=== PATIENT | male | born 1985 | race Caucasian/White ===

== ENCOUNTER 2023-12-01 12:15 | Inpatient (IN) | payer OTHER, MEDICAID, SELFPAY ==
[2023-12-01] VITALS (136 sets, daily range): BP systolic 98–174; BP diastolic 46–94; PULSE 60–106; RESP 10–35; TEMP 25–36.8; O2SAT 81–100; BMI 81.3
--- NOTE | 2023-12-01 12:27 | DI.RAD.S_ITS ---
PROCEDURE: XR CHEST 1V INDICATIONS: Shortness of breath TECHNIQUE: One view of the chest was acquired. COMPARISON: [facility], CR, XR CHEST 1 VIEW, 03/07/2023, 15:05. [facility], CR, XR CHEST 1 VIEW, 11/21/2023, 8:25. FINDINGS: Surgical changes and devices: None. Lungs and pleura: Mild perihilar interstitial prominence. No focal consolidation No pleural effusions or pneumothorax. Mediastinum: Mediastinal contours appear normal. Heart size is normal. Bones and chest wall: No suspicious bony lesions. Overlying soft tissues appear unremarkable. IMPRESSION: Mild perihilar interstitial prominence suggesting mild pulmonary congestion. Dictated by: Ryan Paz M.D. on 12/01/2023 at 13:11 Approved by: Ryan Paz M.D. on 12/01/2023 at 13:13
--- NOTE | 2023-12-01 13:12 | ED_ITS ---
HPI - General Adult General Chief complaint: Shortness of Breath/Dyspnea Stated complaint: low oxygen, coughing up foamy red Time Seen by Provider: 12/01/23 13:11 Mode of arrival: Wheelchair History of Present Illness HPI narrative: 38-year-old gentleman with a history of super morbid obesity, BMI of 81.4, oxygen-dependent with a history of methadone dependence, prior pulmonary embolism on warfarin, congestive heart failure and restrictive lung disease on 40 mg of Lasix b.i.d. recently moved to the area and having difficulty with housing instability, finding a primary care provider, continuing medications and presents today complaining of increasing dyspnea. He notes that he has had slight increase in cough, runny nose feels that he likely had a viral infection starting a couple of days ago. He ?thinks? that he has been taking his Lasix and his warfarin but can not completely confirm this. He was seen at [facility] Emergency Department on November 20 with similar complaints medications were filled at that time. The patient had since had 2 moves. Currently says that he his mother to other adults and 2 cats are living in a very small hotel room for the next week and do not have housing options beyond that. He typically isn't on 2 L of oxygen at home and does have his oxygen available. On that 2 L he is usually in the 90-91% range. Over the last couple of days his oxygen saturations have consistently been in the low 80s and on arrival in the emergency department was at 81% on 1.5 L. significant exertional dyspnea, difficulty even rolling over which is compounded by his BMI of 81. He sits it is lower extremities are swollen but not dramatically more so. There was no vesicles or weeping. He does have decubitus breakdown over both posterior thighs that has been difficult to care for but he feels that that is currently at its baseline as well. He has not complaining palpitations or chest pain. He does have a mild headache mild nasal congestion Related Data Allergies Allergy/AdvReac Type Severity Reaction Status Date / Time No Known Drug Allergies Allergy Verified 12/01/23 12:27 Review of Systems Review of Systems Narrative: Pertinent positive and negative findings as per HPI Patient History Medical History Decubitus ulcers Chronic respiratory failure with hypoxia and hypercapnia Pulmonary embolism Congestive heart failure Morbid obesity Social History household members: family and friend(s) Smoking Status: Former smoker Smoking Status: Former smoker Substance Use Type: marijuana Exam Initial Vital Signs Initial Vital Signs: Vital Signs Temperature 96.7 F L 12/01/23 12:23 Pulse Rate 106 H 12/01/23 12:23 Respiratory Rate 24 12/01/23 12:23 Blood Pressure 134/68 12/01/23 12:23 Pulse Oximetry 81 L 12/01/23 12:23 Oxygen Delivery Method Nasal Cannula 12/01/23 12:23 Oxygen Flow Rate 1.5 12/01/23 12:23 General: Chronically ill-appearing, morbidly obese, currently on 6 L humidified nasal cannula oxygen able to speak in full sentences HEENT: Moist mucous membranes, normal sclera with reactive pupils, Respiratory: Lung Cardiac: Regular rate and rhythm no murmurs no bruits Abdomen: Soft, nontender, good bowel tones, no flank pain Skin: Warm and dry, no rashes Neurologic: Grossly neurologically intact with no obvious asymmetries or abnormalities Extremities: No trauma, well perfused Psych: Cooperative, appropriate insight and affect Course Orders Ordered: ED Orders 12/01/23 12:27 Consult to FIRE WATCHER - Philosophy Lecturer Stat XR chest 1V Stat EKG-12 Lead Stat Measure peak expiratory flow ONCE RT Consult Eval and Treat NOW 12/01/23 13:20 Complete Blood Count AUTO DIFF Stat Comprehensive Metabolic Panel Stat Lactate (Lactic Acid) Stat NT-proBNP (BNP-Adult 18+) Stat Prothrombin Time INR Stat Troponin I Stat 12/01/23 14:32 BiPAP Ventilatory Support RT PROTOCOL 12/01/23 14:49 ABG [Arterial Blood Gas] Stat 12/01/23 15:33 Respiratory Panel (Film Array) Stat Discontinued Medications Albuterol (Albuterol 2.5 Mg/3 Ml Neb (Adult)) 5 mg INH NOW ONE Stop: 12/01/23 13:22 Last Admin: 12/01/23 13:26 Dose: 5 mg Documented By: JIMMY Furosemide 80 mg/ Sodium (Chloride) 58 mls @ 116 mls/hr IV NOW ONE Stop: 12/01/23 14:02 Last Infusion: 12/01/23 15:07 Dose: Infused Documented By: Admin: 12/01/23 14:29 Dose: 116 mls/hr Documented By: PRIYA Vital Signs Vital signs: Vital Signs - 8 hr 12/01/23 12:23 12/01/23 13:15 12/01/23 13:20 Temperature 96.7 F L Pulse Rate 106 H 100 H 91 H Respiratory Rate 24 19 20 Blood Pressure 134/68 Pulse Oximetry 81 L 90 L 93 Oxygen Delivery Method Nasal Cannula Nasal Cannula Nasal Cannula Oxygen Flow Rate 1.5 2 6 Fraction of Inspired Oxygen 12/01/23 13:25 12/01/23 13:26 12/01/23 13:29 Temperature Pulse Rate 91 H 87 Respiratory Rate 17 10 L Blood Pressure 137/79 Pulse Oximetry 94 94 Oxygen Delivery Method Nasal Cannula Nasal Cannula Oxygen Flow Rate 6 6 Fraction of Inspired Oxygen 44 12/01/23 13:29 12/01/23 13:30 12/01/23 13:30 Temperature Pulse Rate 87 85 Respiratory Rate 15 18 Blood Pressure 147/83 H Pulse Oximetry 99 99 Oxygen Delivery Method Nasal Cannula Nasal Cannula Oxygen Flow Rate 6 6 Fraction of Inspired Oxygen 12/01/23 13:35 12/01/23 13:40 12/01/23 13:40 Temperature Pulse Rate 85 87 Respiratory Rate 15 18 Blood Pressure 154/81 H Pulse Oximetry 97 92 Oxygen Delivery Method Nasal Cannula Oximask Oxygen Flow Rate 6 8 Fraction of Inspired Oxygen 12/01/23 13:45 12/01/23 13:50 12/01/23 13:50 Temperature Pulse Rate 87 98 H Respiratory Rate 16 23 Blood Pressure 174/76 H Pulse Oximetry 94 93 Oxygen Delivery Method Oximask Oximask Oxygen Flow Rate 8 8 Fraction of Inspired Oxygen 12/01/23 13:55 12/01/23 14:00 12/01/23 14:00 Temperature Pulse Rate 84 89 Respiratory Rate 20 35 H Blood Pressure 163/78 H Pulse Oximetry 95 90 L Oxygen Delivery Method Oxygen Flow Rate Fraction of Inspired Oxygen 12/01/23 14:05 12/01/23 14:10 12/01/23 14:10 Temperature Pulse Rate 92 H 95 H Respiratory Rate 33 H 24 Blood Pressure 153/73 H Pulse Oximetry 89 L 86 L Oxygen Delivery Method Oxygen Flow Rate Fraction of Inspired Oxygen 12/01/23 14:15 12/01/23 14:16 12/01/23 14:20 Temperature Pulse Rate 87 71 Respiratory Rate 21 30 H Blood Pressure Pulse Oximetry 95 81 L 94 Oxygen Delivery Method Humidification Oximask Oxygen Flow Rate 8 Fraction of Inspired Oxygen 12/01/23 14:20 12/01/23 14:25 12/01/23 14:30 Temperature Pulse Rate 71 73 Respiratory Rate 30 H 23 Blood Pressure 137/64 Pulse Oximetry 95 96 Oxygen Delivery Method Oxygen Flow Rate Fraction of Inspired Oxygen 12/01/23 14:31 12/01/23 14:31 12/01/23 14:35 Temperature Pulse Rate 77 83 Respiratory Rate 18 27 H Blood Pressure 147/86 H Pulse Oximetry 90 L 91 Oxygen Delivery Method Oximask Oxygen Flow Rate 8 Fraction of Inspired Oxygen 12/01/23 14:40 12/01/23 14:40 12/01/23 14:40 Temperature Pulse Rate 67 Respiratory Rate 27 H Blood Pressure 133/79 Pulse Oximetry 98 Oxygen Delivery Method BiPAP Oxygen Flow Rate Fraction of Inspired Oxygen 50 12/01/23 14:45 12/01/23 14:50 12/01/23 14:51 Temperature Pulse Rate 66 67 68 Respiratory Rate 24 26 H 28 H Blood Pressure Pulse Oximetry 99 99 98 Oxygen Delivery Method Oxygen Flow Rate Fraction of Inspired Oxygen 12/01/23 14:51 12/01/23 14:55 12/01/23 14:56 Temperature Pulse Rate 70 Respiratory Rate 29 H Blood Pressure 152/94 H Pulse Oximetry 100 Oxygen Delivery Method Oxygen Flow Rate Fraction of Inspired Oxygen 30 12/01/23 15:00 12/01/23 15:05 12/01/23 15:10 Temperature Pulse Rate 90 69 67 Respiratory Rate 24 20 17 Blood Pressure Pulse Oximetry 96 94 92 Oxygen Delivery Method Oxygen Flow Rate Fraction of Inspired Oxygen 12/01/23 15:11 12/01/23 15:11 12/01/23 15:15 Temperature Pulse Rate 67 68 Respiratory Rate 14 22 Blood Pressure 168/77 H Pulse Oximetry 93 92 Oxygen Delivery Method Oxygen Flow Rate Fraction of Inspired Oxygen 12/01/23 15:20 12/01/23 15:21 12/01/23 15:21 Temperature Pulse Rate 68 70 Respiratory Rate 19 25 H Blood Pressure 153/86 H Pulse Oximetry 93 92 Oxygen Delivery Method Oxygen Flow Rate Fraction of Inspired Oxygen 12/01/23 15:25 12/01/23 15:30 12/01/23 15:31 Temperature Pulse Rate 67 68 69 Respiratory Rate 15 25 H 19 Blood Pressure Pulse Oximetry 93 92 91 Oxygen Delivery Method Oxygen Flow Rate Fraction of Inspired Oxygen 12/01/23 15:31 12/01/23 15:35 12/01/23 15:37 Temperature Pulse Rate 70 71 Respiratory Rate 18 21 Blood Pressure 98/46 L Pulse Oximetry 90 L 90 L Oxygen Delivery Method Oxygen Flow Rate Fraction of Inspired Oxygen 12/01/23 15:37 12/01/23 15:40 12/01/23 15:45 Temperature Pulse Rate 71 73 Respiratory Rate 20 15 Blood Pressure 116/61 Pulse Oximetry 90 L 95 Oxygen Delivery Method Oxygen Flow Rate Fraction of Inspired Oxygen 12/01/23 15:46 12/01/23 15:50 12/01/23 15:55 Temperature Pulse Rate 74 74 Respiratory Rate 19 22 Blood Pressure 116/61 Pulse Oximetry 96 93 Oxygen Delivery Method Oxygen Flow Rate Fraction of Inspired Oxygen 30 12/01/23 16:00 12/01/23 16:05 12/01/23 16:10 Temperature Pulse Rate 79 81 82 Respiratory Rate 19 20 14 Blood Pressure Pulse Oximetry 94 92 Oxygen Delivery Method Oxygen Flow Rate Fraction of Inspired Oxygen 12/01/23 16:15 12/01/23 16:20 12/01/23 16:25 Temperature Pulse Rate 77 70 71 Respiratory Rate 24 21 12 Blood Pressure Pulse Oximetry 90 L 96 95 Oxygen Delivery Method Oxygen Flow Rate Fraction of Inspired Oxygen 12/01/23 16:30 12/01/23 16:35 Temperature Pulse Rate 77 69 Respiratory Rate 20 17 Blood Pressure Pulse Oximetry 96 93 Oxygen Delivery Method Oxygen Flow Rate Fraction of Inspired Oxygen Medical Decision Making Lab Data 12/01/23 13:20 12/01/23 13:20 Labs: Lab Results 12/01/23 12/01/23 12/01/23 Range/Units 13:20 14:49 15:33 WBC 7.4 (4.5-11.0) X10^3/uL RBC 4.59 (4.5-5.9) X10^6/uL Hgb 10.9 L (13.5-17.5) g/dL Hct 35.2 L (41-53) % MCV 76.7 L (80-100) fL MCH 23.8 L (26-34) PG MCHC 31.1 (30-36) % RDW 17.6 H (11.6-14.8) % Plt Count 316 (150-400) X10^3/uL Neut % (Auto) 80.3 H (50-75) % Lymph % (Auto) 9.6 L (25-40) % [place] % (Auto) 8.3 (3-14) % Eos % (Auto) 0.9 L (2-4) % Baso % (Auto) 0.9 (0-2) % Neut # (Auto) 5900 (9707-1516) /uL Lymph # (Auto) 700 L (3220-9138) /uL [place] # (Auto) 600 (0-900) /uL Eos # (Auto) 100 (0-450) /uL Baso # (Auto) 100 (0-100) /uL PT 21.8 H (9.4-12.5) SECONDS INR 1.9 H (0.9-1.3) ABG Sample Site Right radial ABG pH 7.32 L (7.35-7.45) ABG pCO2 78.4 H* (35-45) mmHg ABG pO2 102 H (80-100) mmHg ABG HCO3 41 H (23-27) mmol/L ABG Total CO2 43 H (23-27) mmol/L ABG O2 Saturation 97 (95-100) % ABG Base Excess 15.0 H (-2-3) mmol/L FiO2 50 Sodium 139 (137-145) mmol/L Potassium 3.8 (3.4-5.1) mmol/L Chloride 98 (98-107) mmol/L Carbon Dioxide 37 H (22-32) mmol/L BUN 8 L (9-20) mg/dL Creatinine 0.67 (0.66-1.25) mg/dL Estimated GFR > 60 (>60) mL/min BUN/Creatinine Ratio 11.9 (6-22) Glucose 137 H (70-100) mg/dL Lactate 1.6 (0.7-2.1) mmol/L Calcium 8.0 L (8.4-10.2) mg/dL Total Bilirubin 0.5 (0.2-1.3) mg/dL AST 17 (17-59) IU/L ALT 10 (<50) IU/L Alkaline Phosphatase 71 (38-126) U/L Troponin I < 0.012 (0.01-0.034) ng/mL NT-Pro-B Natriuret Pep 2850 H (<125) pg/mL Total Protein 7.5 (6.3-8.2) g/dL Albumin 3.7 (3.5-5.0) g/dL Globulin 3.8 (1.7-4.1) g/dL Albumin/Globulin Ratio 1.0 (1.0-2.8) Chlamy pneumoniae PCR Not detected (Not Detect) Adenovirus (PCR) Not detected (Not Detect) B.parapertussis DNA PCR Not detected (Not Detecte) Coronavirus OC43 (PCR) Not detected (Not Detect) Coronavirus HKU1 (PCR) Not detected (Not Detect) Coronavirus 229E (PCR) Not detected (Not Detect) SARS-CoV-2 (PCR) Not detected (Not Detecte) Coronavirus NL63 (PCR) Not detected (Not Detect) Human Metapneumovir PCR Not detected (Not Detect) Influenza Type A (PCR) Not detected (Not Detect) Influenza Type B (PCR) Not detected (Not Detect) M. pneumoniae (PCR) Not detected (Not Detect) Parainfluenza 1 (PCR) Not detected (Not Detect) Parainfluenza 2 (PCR) Not detected (Not Detect) Parainfluenza 3 (PCR) Not detected (Not Detect) Parainfluenza 4 (PCR) Not detected (Not Detect) RSV (PCR) Not detected (Not Detect) Entero/Rhino (PCR) Detected H (Not Detect) Urine Dip Bedside Urine Glucose Negative Bedside Urine Bilirubin - Negative Bedside Urine Ketone - Negative Urine Specific Violet 1.010 Bedside Urine Occult Blood - Negative Bedside Urine pH 6.5 Bedside Urine Protein - Negative Bedside Urine Urobilinogen - Negative Bedside Urine Nitrite - Negative Bedside Urine Leukocytes - Negative Esterase Point of care testing: Urine Dip Bedside Urine Glucose Negative Bedside Urine Bilirubin - Negative Bedside Urine Ketone - Negative Urine Specific Violet 1.010 Bedside Urine Occult Blood - Negative Bedside Urine pH 6.5 Bedside Urine Protein - Negative Bedside Urine Urobilinogen - Negative Bedside Urine Nitrite - Negative Bedside Urine Leukocytes - Negative Esterase MDM Narrative Medical decision making narrative: CC: Increasing dyspnea Complicating co-morbidities: Morbid obesity, restrictive lung disease secondary to morbid obesity, congestive heart failure, home oxygen dependent, housing instability, inconsistent use of medications because of housing instability, decubitus ulcers posterior thighs bilaterally Data collected from: patient, mother Medical records reviewed: ER note from [facility] from November 20 reviewed Differential considered: Viral syndrome, acute exacerbation of congestive heart failure, progressive restrictive lung disease with respiratory distress, pneumonia, acute coronary syndrome Exam documented above, pertinent findings include: Patient's saturations were in the low 80s on 1.5 L at home. In the low 90s on 6 L in the emergency department. Morbidly obese, exam is challenging due to this. I do not appreciate significant wheezing or crackles. He has chronic venous stasis changes and chronic [place] edema in the lower extremities without bulla or weeping. No evidence of lower extremity cellulitis. He does have skin break down behind both thighs without obvious infection. Lab Test results independently reviewed as above. Pertinent findings: CBC does not suggest infection, chronic stable anemia, platelets are appropriate ABG is notable for a pH of 7.32, CO2 of 78.4, O2 of 102 and this is with an FiO2 of 50 Chemistries are unremarkable. With creatinine appropriate. ProBNP is minimally elevated at 2850 troponin is nondetectable Respiratory panel does return positive for entero/rhino virus Independently reviewed EKG: EKG shows sinus rhythm at a rate of 83. No acute ischemic changes Imaging studies independently reviewed: Chest x-ray is consistent with mild pulmonary congestion no acute infiltrates Treatments: 80 mg of Lasix, nasal cannula oxygen. Re-evaluations: Patient is deteriorating and becoming increasingly confused. ABG is ordered showing his CO2 increasing to 78.4. I suspect this is in part to the higher oxygen levels. Requested that oxygen levels be maintained in the 90- 92% range certainly not higher and BiPAP be started while he is still alert and appropriate enough to participate with BiPAP. He would be a very poor candidate for intubation both in terms of getting him intubated and getting him extubated with his morbid obesity. Discussion: 38-year-old gentleman with morbid obesity, restrictive lung disease congestive heart failure housing instability not taking medications as prescribed due to the housing instability worsening congestive heart failure and increasing CO2. He is currently on BiPAP and seems to be doing relatively well. Clearly is oxygen dependent for respiratory drive and sats need to remain in the low 90s. He has been given 80 mg of IV Lasix. He will need a bariatric bed and attention to the pressure ulcers on the back of his thighs. These are not infected currently and he does not need current antibiotics. There was no evidence of acute coronary syndrome. Care will be discussed with the hospitalist Critical Care Time Critical Care Time Critical Care Time: Yes Total Critical Care Time: 33 Attestation: Critical care time is separate from other billable procedures. There is a high probability of a significant, sudden or life-threatening deterioration that requires my full and direct attention, intervention and personal management. This critical care time includes consultation with family and other consulting doctors, review of records, and interpretation of data from labs, EKGs and imaging as well as managements of progressive respiratory failure with initiation of BiPAP Discharge Plan Departure Patient Disposition: Admitted As Inpatient Clinical Impression: Morbid obesity with BMI of 70 and over, adult, Enterovirus infection Congestive heart failure Qualifiers: Heart failure type: unspecified Heart failure chronicity: acute on chronic Q ualified Code(s): I50.9 - Heart failure, unspecified Pulmonary embolism Qualifiers: Pulmonary embolism type: other Chronicity: chronic Acute cor pulmonale presence: unspecified Qualified Code(s): I27.82 - Chronic pulmonary embolism Respiratory failure with hypoxia and hypercapnia Qualifiers: Chronicity: acute on chronic Qualified Code(s): J96.21 - Acute and chronic respiratory failure with hypoxia Decubitus skin ulcer Qualifiers: Pressure injury location: thigh Pressure injury stage: stage 2 Laterality: u nspecified laterality Qualified Code(s): L89.202 - Pressure ulcer of unspecified hip, stage 2 Admit Date/Time: 12/01/23 16:35 Admit Provider: Elvis Viera
[2023-12-01] MEDS: ALBUTEROL 2.5 MG/3 ML NEB (ADULT) 5 MG INH (13:26)
[2023-12-01 13:35] LABS: Add Manual Diff / Slide Review NO; Basophils Absolute Auto 100 /uL (0-100); Basophils Percent Auto 0.9 % (0-2); Eosinophils Absolute Auto 100 /uL (0-450); Eosinophils Percent Auto 0.9 % (2-4); Hematocrit 35.2 % (41-53); Hemoglobin 10.9 g/dL (13.5-17.5); Lymphocytes Absolute Auto 700 /uL (1100-4500); Lymphocytes Percent Auto 9.6 % (25-40); Mean Corpuscular HGB Conc 31.1 % (30-36); Mean Corpuscular Hemoglobin 23.8 PG (26-34); Mean Corpuscular Volume 76.7 fL (80-100); Monocytes Absolute Auto 600 /uL (0-900); Monocytes Percent Auto 8.3 % (3-14); Neutrophils Absolute Auto 5900 /uL (1500-7000); Neutrophils Percent Auto 80.3 % (50-75); Platelet Count 316 X10^3/uL (150-400); Red Blood Cell Count 4.59 X10^6/uL (4.5-5.9); Red Cell Distribution Width 17.6 % (11.6-14.8); White Blood Cell Count 7.4 X10^3/uL (4.5-11.0)
[2023-12-01 13:44] LABS: INR 1.9 (0.9-1.3); Prothrombin Time 21.8 SECONDS (9.4-12.5)
[2023-12-01 13:48] LABS: Alanine Aminotransferase 10 IU/L (<50); Albumin 3.7 g/dL (3.5-5.0); Alkaline Phosphatase 71 U/L (38-126); Aspartate Aminotransferase 17 IU/L (17-59); BUN Creatinine Ratio 11.9 (6-22); Bilirubin Total 0.5 mg/dL (0.2-1.3); Blood Urea Nitrogen 8 mg/dL (9-20); Chloride 98 mmol/L (98-107); Estimated Glomerular Filt Rate > 60 mL/min (>60); Globulin 3.8 g/dL (1.7-4.1); Glucose 137 mg/dL (70-100); HEMOLYSIS < 15 (0-50); Lactate (Lactic Acid) 1.6 mmol/L (0.7-2.1); Potassium 3.8 mmol/L (3.4-5.1); Sodium 139 mmol/L (137-145); Total Protein 7.5 g/dL (6.3-8.2)
[2023-12-01 13:55] LABS: Carbon Dioxide 37 mmol/L (22-32)
[2023-12-01 13:58] LABS: NT-proBNP (BNP-Adult 18+) 2850 pg/mL (<125)
[2023-12-01 14:00] LABS: Troponin I < 0.012 ng/mL (0.01-0.034)
--- NOTE | 2023-12-01 14:12 | PC.NURSE ---
RT called to re evaluated patient. Sats dropping into 70's. Patient sleeping and mouth breathing. Upon waking patient sats come up to mid 80's when encouraged to take deep breaths
[2023-12-01] MEDS: FUROSEMIDE 80 MG in SODIUM CHLORIDE 0.9% 50 ML 116 MG IV (14:29)
--- NOTE | 2023-12-01 14:40 | PC.NURSE ---
1430 Came to bedside of patient due to low O2 saturation of 83% with good waveform. Patient is responsive to pain with a GCS of 9, not speaking. He is on 8L o2 via oximask with wet lung sounds. O spoke with Dr. freire and Will RY, verbal order given for patient to be put on BIPAP and to get an ABG/VBG.
[2023-12-01 15:11] LABS: PCO2 ABG 78.4 mmHg (35-45); pH ABG 7.32 (7.35-7.45)
[2023-12-01 15:12] LABS: Allen Test for ABG Passed? Yes, Passed; Blood Gas Collection Site Right Radial; Fractionated Inspired Oxygen 50; HCO3 ABG 41 mmol/L (23-27); Oxygen Saturation ABG 97 % (95-100); PO2 ABG 102 mmHg (80-100); TCO2 ABG 43 mmol/L (23-27)
[2023-12-01 16:33] LABS: Adenovirus Not Detected (Not Detect); B. parapertussis Not Detected (Not Detecte); Bordetella pertussis Not Detected (Not Detect); Chlamydophila pneumoniae Not Detected (Not Detect); Coronavirus 229E Not Detected (Not Detect); Coronavirus HKU1 Not Detected (Not Detect); Coronavirus NL 63 Not Detected (Not Detect); Coronavirus OC43 Not Detected (Not Detect); Human Metapneumovirus Not Detected (Not Detect); Human Rhinovirus/Enterovirus Detected (Not Detect); Influenza A Not Detected (Not Detect); Influenza B Not Detected (Not Detect); Mycoplasma pneumoniae Not Detected (Not Detect); Parainfluenza Virus 1 Not Detected (Not Detect); Parainfluenza Virus 2 Not Detected (Not Detect); Parainfluenza Virus 3 Not Detected (Not Detect); Parainfluenza Virus 4 Not Detected (Not Detect); Respiratory Syncytial Virus Not Detected (Not Detect); SARS- CoV-2 Not Detected (Not Detecte)
--- NOTE | 2023-12-01 17:20 | CM.IDA ---
Initial DCP Assessment Note Patient is 38 y/o male who presents to ED via POV with mother due to concern for SOB, low O2 and difficulty accessing rx. Patient has home O2 on 1.5 L. Patient does not have current PCP, [facility] [employer] [facility] Insurance. Patient has hx of Morbid Obesity, PE, CHF, Respiratory failure with hypoxia & hypercapnia, and Decubitus skin ulcer. Patient required BiPAP due to patient's O2 sats, patient is unable to speak with SPORTS DOCTOR. Present in room is patient's mother and patient nods allowing SPORTS DOCTOR to speak with mother. It is reported that patient, mother, patient's sister and friend are currently residing at the [facility] due to housing insecurity. It is reported in recent months they had to move out of their rental of 7 years. It is reported that the family is on a fixed income and patient is on disability. Mother reports that they have paid for a two week stay at the [facility]. Mother reports that they have applied to [employer], [employer] and [facility]. Mother states she is making phone calls to identify resources available for basic needs and housing. It is reported that patient uses a wheelchair or two canes at baseline and has had difficulty ambulating. Patient presents with difficulty managing ADLs due to issues with ambulation and morbid obesity. Patient has good support from family and the friend who reside with him. It is reported that patient receives transportation from his mother's vehicle. Patient is requiring BiPAP, oxygen dependent to maintain in low 90s. Patient has been admitted to ICU by hospitalist due to concern for CHF, PE, respiratory failure with hypoxia & hypercapnia, decubitius skin olcer and morbid obesity. SPORTS DOCTOR provides patient's mother with housing, food and basic need resources. Plan: Patient admitted to ICU for further evaluation and treatment, DCP to follow up with family regarding POC, patient may be good candidate for acute rehab. Pending therapies. ROXANA Wall Discharge Planning/Care Management CM Discharge Assessment Start: 12/01/23 17:12 Freq: Status: Active Protocol: Document 12/01/23 17:12 LN (Rec: 12/01/23 17:18 LN [id number]) Discharge Planning Assessment Assigned Deep Fryer Assembler ROXANA Salinas Advance Directives? No History Provided By Parents,Medical Record Has Patient been admitted in last 30 No days? Prior Living Arrangements Other Comment Patient is currently residing in hotel room with 3 other adults at [facility] Household Members family,friend(s) Comment Patient resides with mother, sister and friend Type of transporation used prior to Relies on Others admit Independent with ADL's No Is patient alert and oriented? Yes Needs Assistance With Bathing,Grooming,Toileting Comment Patient has difficulty ambulating due to obesity and often uses a urinal. Caregiver for Another No DME Already Rented / Owned Wheelchair,Cane Comment Patient has been using his wheelchair to get around and also uses two canes. Please Provide Date Initial DC 12/01/23 Assessment Was Performed
--- NOTE | 2023-12-01 17:57 | P.HP_ITS ---
History of Present Illness History of Present Illness Date Patient Seen: 12/01/23 Time Patient Seen: 17:57 Chief complaint: low oxygen, coughing up foamy red Narrative: Patient was a [age]-year-old male with a history of super morbid obesity and BMI of 81 0.4. He is oxygen dependent and uses oxygen some of the time. He has a history of methadone dependence as well as history of pulmonary embolism on warfarin and congestive heart failure as well as restrictive lung disease. He has been through a lot in terms of stability of living. And because of this was off all medications for about a week, back on for 2 days, and then off for 2 days. He presented to the ED today with dyspnea. The patient was noting rhinorrhea and a cough. His PCR in the ED was positive for rhino virus. Upon arrival in the ED he was 81% on 1.5 L and had a lot of exertional dyspnea. The patient was placed on oxygen and then developed hypercapnia and required BiPAP. The patient was ultimately taken off from BiPAP and transferred up stairs and doing well. He was able to transfer with 2 canes from 1 bed to another. He denies recent chest pain, orthopnea. He would some extra edema about a week ago but less now. He lives with his girlfriend, mother and sister. They recently moved into a local motel within the last 2 days. He also has multiple skin ulcers over the superior aspect of the back of both thighs. These had been healed but with his recent housing instability and staying in a car for several days these have become active again. He denies any diarrhea, and has a bowel movement about every other day. He uses a urinal to urinate denies any change of urine in terms of frequency, or quality. [facility] Medical History Decubitus ulcers Chronic respiratory failure with hypoxia and hypercapnia Pulmonary embolism Congestive heart failure Morbid obesity Social History household members: family and friend(s) Smoking Status: Former smoker alcohol intake: never Meds Home Medications and Allergies Home Medications Medication Instructions Recorded Confirmed Type docusate sodium 100 mg capsule 100 mg PO BID 12/01/23 12/01/23 History furosemide 40 mg tablet 40 mg PO DAILY 12/01/23 12/01/23 History metformin 500 mg tablet,extended 500 mg PO BID 12/01/23 12/01/23 History release 24 hr omeprazole 20 mg capsule,delayed 20 mg PO DAILY 12/01/23 12/01/23 History release polyethylene glycol 3350 17 17 g PO DAILY PRN Constipation 12/01/23 12/01/23 History gram/dose oral powder potassium chloride 20 mEq 20 meq PO DAILY 12/01/23 12/01/23 History tablet,extended release(part/cryst) warfarin 5 mg tablet 5 mg PO DAILY 12/01/23 12/01/23 History Allergies Allergy/AdvReac Type Severity Reaction Status Date / Time No Known Drug Allergies Allergy Verified 12/01/23 12:27 Review of Systems Review of Systems Narrative: All else reviewed and otherwise unremarkable except as noted in the history and physical. Exam Vital Signs (past 8 hours): - 12/01/23 12:23 12/01/23 13:15 12/01/23 13:20 Temperature 96.7 F L Pulse Rate 106 H 100 H 91 H Respiratory Rate 24 19 20 Blood Pressure 134/68 Pulse Oximetry 81 L 90 L 93 Oxygen Delivery Method Nasal Cannula Nasal Cannula Nasal Cannula Oxygen Flow Rate 1.5 2 6 Fraction of Inspired Oxygen 12/01/23 13:25 12/01/23 13:26 12/01/23 13:29 Temperature Pulse Rate 91 H 87 Respiratory Rate 17 10 L Blood Pressure 137/79 Pulse Oximetry 94 94 Oxygen Delivery Method Nasal Cannula Nasal Cannula Oxygen Flow Rate 6 6 Fraction of Inspired Oxygen 44 12/01/23 13:29 12/01/23 13:30 12/01/23 13:30 Temperature Pulse Rate 87 85 Respiratory Rate 15 18 Blood Pressure 147/83 H Pulse Oximetry 99 99 Oxygen Delivery Method Nasal Cannula Nasal Cannula Oxygen Flow Rate 6 6 Fraction of Inspired Oxygen 12/01/23 13:35 12/01/23 13:40 12/01/23 13:40 Temperature Pulse Rate 85 87 Respiratory Rate 15 18 Blood Pressure 154/81 H Pulse Oximetry 97 92 Oxygen Delivery Method Nasal Cannula Oximask Oxygen Flow Rate 6 8 Fraction of Inspired Oxygen 12/01/23 13:45 12/01/23 13:50 12/01/23 13:50 Temperature Pulse Rate 87 98 H Respiratory Rate 16 23 Blood Pressure 174/76 H Pulse Oximetry 94 93 Oxygen Delivery Method Oximask Oximask Oxygen Flow Rate 8 8 Fraction of Inspired Oxygen 12/01/23 13:55 12/01/23 14:00 12/01/23 14:00 Temperature Pulse Rate 84 89 Respiratory Rate 20 35 H Blood Pressure 163/78 H Pulse Oximetry 95 90 L Oxygen Delivery Method Oxygen Flow Rate Fraction of Inspired Oxygen 12/01/23 14:05 12/01/23 14:10 12/01/23 14:10 Temperature Pulse Rate 92 H 95 H Respiratory Rate 33 H 24 Blood Pressure 153/73 H Pulse Oximetry 89 L 86 L Oxygen Delivery Method Oxygen Flow Rate Fraction of Inspired Oxygen 12/01/23 14:15 12/01/23 14:16 12/01/23 14:20 Temperature Pulse Rate 87 71 Respiratory Rate 21 30 H Blood Pressure Pulse Oximetry 95 81 L 94 Oxygen Delivery Method Humidification Oximask Oxygen Flow Rate 8 Fraction of Inspired Oxygen 12/01/23 14:20 12/01/23 14:25 12/01/23 14:30 Temperature Pulse Rate 71 73 Respiratory Rate 30 H 23 Blood Pressure 137/64 Pulse Oximetry 95 96 Oxygen Delivery Method Oxygen Flow Rate Fraction of Inspired Oxygen 12/01/23 14:31 12/01/23 14:31 12/01/23 14:35 Temperature Pulse Rate 77 83 Respiratory Rate 18 27 H Blood Pressure 147/86 H Pulse Oximetry 90 L 91 Oxygen Delivery Method Oximask Oxygen Flow Rate 8 Fraction of Inspired Oxygen 12/01/23 14:40 12/01/23 14:40 12/01/23 14:40 Temperature Pulse Rate 67 Respiratory Rate 27 H Blood Pressure 133/79 Pulse Oximetry 98 Oxygen Delivery Method BiPAP Oxygen Flow Rate Fraction of Inspired Oxygen 50 12/01/23 14:45 12/01/23 14:50 12/01/23 14:51 Temperature Pulse Rate 66 67 68 Respiratory Rate 24 26 H 28 H Blood Pressure Pulse Oximetry 99 99 98 Oxygen Delivery Method Oxygen Flow Rate Fraction of Inspired Oxygen 12/01/23 14:51 12/01/23 14:55 12/01/23 14:56 Temperature Pulse Rate 70 Respiratory Rate 29 H Blood Pressure 152/94 H Pulse Oximetry 100 Oxygen Delivery Method Oxygen Flow Rate Fraction of Inspired Oxygen 30 12/01/23 15:00 12/01/23 15:05 12/01/23 15:10 Temperature Pulse Rate 90 69 67 Respiratory Rate 24 20 17 Blood Pressure Pulse Oximetry 96 94 92 Oxygen Delivery Method Oxygen Flow Rate Fraction of Inspired Oxygen 12/01/23 15:11 12/01/23 15:11 12/01/23 15:15 Temperature Pulse Rate 67 68 Respiratory Rate 14 22 Blood Pressure 168/77 H Pulse Oximetry 93 92 Oxygen Delivery Method Oxygen Flow Rate Fraction of Inspired Oxygen 12/01/23 15:20 12/01/23 15:21 12/01/23 15:21 Temperature Pulse Rate 68 70 Respiratory Rate 19 25 H Blood Pressure 153/86 H Pulse Oximetry 93 92 Oxygen Delivery Method Oxygen Flow Rate Fraction of Inspired Oxygen 12/01/23 15:25 12/01/23 15:30 12/01/23 15:31 Temperature Pulse Rate 67 68 69 Respiratory Rate 15 25 H 19 Blood Pressure Pulse Oximetry 93 92 91 Oxygen Delivery Method Oxygen Flow Rate Fraction of Inspired Oxygen 12/01/23 15:31 12/01/23 15:35 12/01/23 15:37 Temperature Pulse Rate 70 71 Respiratory Rate 18 21 Blood Pressure 98/46 L Pulse Oximetry 90 L 90 L Oxygen Delivery Method Oxygen Flow Rate Fraction of Inspired Oxygen 12/01/23 15:37 12/01/23 15:40 12/01/23 15:45 Temperature Pulse Rate 71 73 Respiratory Rate 20 15 Blood Pressure 116/61 Pulse Oximetry 90 L 95 Oxygen Delivery Method Oxygen Flow Rate Fraction of Inspired Oxygen 12/01/23 15:46 12/01/23 15:50 12/01/23 15:55 Temperature Pulse Rate 74 74 Respiratory Rate 19 22 Blood Pressure 116/61 Pulse Oximetry 96 93 Oxygen Delivery Method Oxygen Flow Rate Fraction of Inspired Oxygen 30 12/01/23 16:00 12/01/23 16:05 12/01/23 16:10 Temperature Pulse Rate 79 81 82 Respiratory Rate 19 20 14 Blood Pressure Pulse Oximetry 94 92 Oxygen Delivery Method Oxygen Flow Rate Fraction of Inspired Oxygen 12/01/23 16:15 12/01/23 16:20 12/01/23 16:25 Temperature Pulse Rate 77 70 71 Respiratory Rate 24 21 12 Blood Pressure Pulse Oximetry 90 L 96 95 Oxygen Delivery Method Oxygen Flow Rate Fraction of Inspired Oxygen 12/01/23 16:30 12/01/23 16:35 12/01/23 16:40 Temperature Pulse Rate 77 69 69 Respiratory Rate 20 17 20 Blood Pressure Pulse Oximetry 96 93 92 Oxygen Delivery Method Oxygen Flow Rate Fraction of Inspired Oxygen 12/01/23 16:45 12/01/23 16:50 12/01/23 16:55 Temperature Pulse Rate 69 70 70 Respiratory Rate 17 18 17 Blood Pressure Pulse Oximetry 92 91 89 L Oxygen Delivery Method Oxygen Flow Rate Fraction of Inspired Oxygen 12/01/23 16:57 12/01/23 16:57 12/01/23 17:00 Temperature Pulse Rate 69 66 Respiratory Rate 16 14 Blood Pressure 151/76 H Pulse Oximetry 93 Oxygen Delivery Method Oxygen Flow Rate Fraction of Inspired Oxygen 12/01/23 17:00 12/01/23 17:40 Temperature Pulse Rate 89 Respiratory Rate 20 Blood Pressure 141/70 H Pulse Oximetry 93 Oxygen Delivery Method Oximask Oxygen Flow Rate 2 Fraction of Inspired Oxygen Fraction of Inspired Oxygen 30 SaO2/FiO2 Ratio 213 Oxygen Delivery Method Oximask Oxygen Flow Rate 2 Narrative Exam Narrative: NAD, alert and oriented, fluent speech, calm. He is morbidly obese but able to transfer with his 2 canes and not overly dyspneic or distressed when doing so. Normocephalic skull, EOMI, anicteric sclera, symmetric pupils. Oropharynx unremarkable, no droop. Neck supple, midline trachea, no adenopathy. Lungs clear, normal rate and effort. Heart regular, no murmur gallop or rub. Abdomen is soft, non distended and non tender. Extremities are free of edema. Skin is free of rash or lesions. Joints are not swollen or deformed. Judgment appears to be normal. He has multiple superficial excoriations of skin with ulceration over the superior aspects of the back of both thighs. Photographs were taken and entered into the record. He has some edema but is difficult to assess with the overall size of his legs. Objective ECG Impression: Normal sinus rhythm with a rate of 83 no acute changes noted. Imaging Chest x-ray: Radiologist's impression: Mild pulmonary congestion. Labs 12/01/23 13:20 12/01/23 13:20 Labs: Laboratory Results - last 24 hr 12/01/23 12/01/23 12/01/23 13:20 14:49 15:33 WBC 7.4 RBC 4.59 Hgb 10.9 L Hct 35.2 L MCV 76.7 L MCH 23.8 L MCHC 31.1 RDW 17.6 H Plt Count 316 Neut % (Auto) 80.3 H Lymph % (Auto) 9.6 L [place] % (Auto) 8.3 Eos % (Auto) 0.9 L Baso % (Auto) 0.9 Neut # (Auto) 5900 Lymph # (Auto) 700 L [place] # (Auto) 600 Eos # (Auto) 100 Baso # (Auto) 100 PT 21.8 H INR 1.9 H ABG Sample Site Right radial ABG pH 7.32 L ABG pCO2 78.4 H* ABG pO2 102 H ABG HCO3 41 H ABG Total CO2 43 H ABG O2 Saturation 97 ABG Base Excess 15.0 H FiO2 50 Sodium 139 Potassium 3.8 Chloride 98 Carbon Dioxide 37 H BUN 8 L Creatinine 0.67 Estimated GFR > 60 BUN/Creatinine Ratio 11.9 Glucose 137 H Lactate 1.6 Calcium 8.0 L Total Bilirubin 0.5 AST 17 ALT 10 Alkaline Phosphatase 71 Troponin I < 0.012 NT-Pro-B Natriuret Pep 2850 H Total Protein 7.5 Albumin 3.7 Globulin 3.8 Albumin/Globulin Ratio 1.0 Chlamy pneumoniae PCR Not detected Adenovirus (PCR) Not detected B.parapertussis DNA PCR Not detected Coronavirus OC43 (PCR) Not detected Coronavirus HKU1 (PCR) Not detected Coronavirus 229E (PCR) Not detected SARS-CoV-2 (PCR) Not detected Coronavirus NL63 (PCR) Not detected Human Metapneumovir PCR Not detected Influenza Type A (PCR) Not detected Influenza Type B (PCR) Not detected M. pneumoniae (PCR) Not detected Parainfluenza 1 (PCR) Not detected Parainfluenza 2 (PCR) Not detected Parainfluenza 3 (PCR) Not detected Parainfluenza 4 (PCR) Not detected RSV (PCR) Not detected Entero/Rhino (PCR) Detected H Assessment & Plan Assessment & Plan narrative: 1. Acute hypoxic and hypercarbic respiratory failure with chronic hypoxic respiratory failure. Present on admission and active. 2. Carbon dioxide retainer, present on admission and active. 3. Rhino virus respiratory infection, present on admission and active. 4. Probable obesity hypoventilation syndrome, present on admission and active. 5. Acute pulmonary edema, present on admission and active. No echo data is available here. 6. Pulmonary embolism, chronic. Present on admission and active. 7. Bilateral posterior thigh and buttock ulcers, present on admission and active. 8. Methadone maintenance independence, present on admission and active. 9. Super morbid obesity with BMI of 81.4, present on admission and active. Plan: -wean oxygen to saturations of 88-90%. Monitor for evidence of hypercarbia with hypersomnolence. BiPAP if needed. -supportive care for rhino virus infection. No antibiotics at this time. -diuresis with Lasix 40 IV b.i.d.. Consider echo. -warfarin per pharmacy, indication DVT pulmonary embolism. -confirm methadone dosing and resume on December 01. Anticipate 1 night of hospital care required, admission to observation status in the intensive care unit. He is full resuscitation. Mother is proxy decision maker. Time Spent With Patient Time with patient: 30 to 49 minutes with 50% spent counseling/coordinating care Quality VTE Deep Vein Thrombosis/Pulmonary Embolism Present on Admission: No MIPS - Admit I confirm the patient?s Advance Care Plan is present, Code status is documented, Surrogate decision maker is in patient?s record [If Yes, STOP here]: Yes MIPS - Meds 'Current medications' to include all prescriptions, [id number] products, herbals, cannabis/cannabidiol products, and vitamin/mineral/dietary (nutritional) supplements. I have utilized all available resources to obtain, update, or review the patient?s current medications. [If Yes, STOP here]: Yes
--- NOTE | 2023-12-01 18:10 | PC.WOUNDPHOT ---
Wound Photos Bilateral buttocks/back of thighs. Third picture of fold between left buttock and thigh.
[2023-12-01] MEDS: WARFARIN 5 MG, WARFARIN 2.5 MG 7.5 MG PO (18:56)
[2023-12-01 20:34] LABS: MRSA (Nasal) PCR DETECTED (Not Detect)
[2023-12-01] MEDS: METFORMIN XR 500 MG TABLET PO (20:37)
[2023-12-01] MEDS: ACETAMINOPHEN 325 MG TABLET 650 MG PO (20:37)
[2023-12-01] MEDS: DOCUSATE 100 MG CAPSULE PO (20:37)
[2023-12-01] MEDS: ENOXAPARIN 100 MG/ML SYRINGE 200 MG SUBCUT (20:38)
[2023-12-01] MEDS: SODIUM CHLORIDE 0.9% FLUSH 10 ML IV (20:39)
[2023-12-02] VITALS (146 sets, daily range): BP systolic 122–165; BP diastolic 11–79; PULSE 63–106; RESP 10–43; TEMP 36.2–36.6; O2SAT 75–100
[2023-12-02 04:58] LABS: Add Manual Diff / Slide Review NO; Basophils Absolute Auto 100 /uL (0-100); Basophils Percent Auto 2.3 % (0-2); Eosinophils Absolute Auto 300 /uL (0-450); Eosinophils Percent Auto 4.7 % (2-4); Hematocrit 35.9 % (41-53); Lymphocytes Absolute Auto 1100 /uL (1100-4500); Lymphocytes Percent Auto 19.3 % (25-40); Mean Corpuscular HGB Conc 30.6 % (30-36); Mean Corpuscular Hemoglobin 23.5 PG (26-34); Mean Corpuscular Volume 76.8 fL (80-100); Monocytes Absolute Auto 600 /uL (0-900); Monocytes Percent Auto 11.3 % (3-14); Neutrophils Absolute Auto 3500 /uL (1500-7000); Neutrophils Percent Auto 62.4 % (50-75); Platelet Count 292 X10^3/uL (150-400); Red Blood Cell Count 4.67 X10^6/uL (4.5-5.9); Red Cell Distribution Width 17.9 % (11.6-14.8); White Blood Cell Count 5.7 X10^3/uL (4.5-11.0)
[2023-12-02 05:07] LABS: BUN Creatinine Ratio 16.4 (6-22); Blood Urea Nitrogen 10 mg/dL (9-20); Calcium 7.7 mg/dL (8.4-10.2); Chloride 97 mmol/L (98-107); Estimated Glomerular Filt Rate > 60 mL/min (>60); Glucose 120 mg/dL (70-100); HEMOLYSIS 31 (0-50); Potassium 3.8 mmol/L (3.4-5.1); Sodium 139 mmol/L (137-145)
[2023-12-02 05:09] LABS: Carbon Dioxide 40 mmol/L (22-32)
[2023-12-02] MEDS: FUROSEMIDE 40 MG/4 ML VIAL IV ×2 (06:23→17:36)
[2023-12-02] MEDS: SODIUM CHLORIDE 0.9% FLUSH 10 ML IV ×3 (06:24→20:39)
[2023-12-02] MEDS: PANTOPRAZOLE DR 20 MG TABLET PO (06:24)
[2023-12-02] MEDS: ACETAMINOPHEN 325 MG TABLET 650 MG PO (06:25)
[2023-12-02 06:34] LABS: INR 1.9 (0.9-1.3); Prothrombin Time 21.6 SECONDS (9.4-12.5)
[2023-12-02] MEDS: ALBUTEROL 2.5 MG/3 ML NEB (ADULT) INH (08:03)
[2023-12-02] MEDS: POTASSIUM CHLORIDE 20 MEQ TAB PO (08:49)
[2023-12-02] MEDS: predniSONE 20 MG TABLET 40 MG PO (08:50)
[2023-12-02] MEDS: DOCUSATE 100 MG CAPSULE PO ×2 (08:50→20:38)
[2023-12-02] MEDS: METFORMIN XR 500 MG TABLET PO ×2 (08:50→20:38)
[2023-12-02] MEDS: ENOXAPARIN 100 MG/ML SYRINGE 200 MG SUBCUT ×2 (08:51→20:38)
[2023-12-02] MEDS: METHADONE INTENSOL 10 MG/ML ORAL.CONC 100 MG PO (12:57)
--- NOTE | 2023-12-02 13:54 | P.PN_ITS ---
Subjective Subjective Interval history: Improved breathing but still short of breath, though improving O2 requirements. No chest pain. Cough improved. Exam Vital Signs (past 8 hours): - 12/02/23 05:55 12/02/23 06:00 12/02/23 06:00 Temperature Pulse Rate 79 66 Respiratory Rate 18 23 Blood Pressure Pulse Oximetry 95 93 96 Oxygen Delivery Method Oxygen Flow Rate 0 Fraction of Inspired Oxygen 40 12/02/23 06:00 12/02/23 06:05 12/02/23 07:00 Temperature Pulse Rate 68 94 H Respiratory Rate 18 29 H Blood Pressure 139/63 Pulse Oximetry 93 89 L Oxygen Delivery Method Oxygen Flow Rate Fraction of Inspired Oxygen 12/02/23 07:01 12/02/23 07:01 12/02/23 07:05 Temperature Pulse Rate 94 H 85 Respiratory Rate 43 H 22 Blood Pressure 146/70 H Pulse Oximetry 89 L 85 L Oxygen Delivery Method Oxygen Flow Rate Fraction of Inspired Oxygen 12/02/23 08:00 12/02/23 08:00 12/02/23 08:00 Temperature Pulse Rate 89 Respiratory Rate 17 Blood Pressure 136/63 Pulse Oximetry 83 L Oxygen Delivery Method Nasal Cannula Oximask Oxygen Flow Rate Fraction of Inspired Oxygen 12/02/23 08:05 12/02/23 09:00 12/02/23 09:00 Temperature Pulse Rate 87 85 Respiratory Rate 16 20 Blood Pressure 123/70 Pulse Oximetry 83 L 89 L Oxygen Delivery Method Oxygen Flow Rate Fraction of Inspired Oxygen 12/02/23 09:00 12/02/23 09:05 12/02/23 10:00 Temperature 97.5 F L Pulse Rate 92 H 99 H Respiratory Rate 26 H 25 H Blood Pressure Pulse Oximetry 87 L 91 Oxygen Delivery Method Oxygen Flow Rate Fraction of Inspired Oxygen 12/02/23 10:01 12/02/23 10:01 12/02/23 10:03 Temperature Pulse Rate 93 H 93 H Respiratory Rate 21 28 H Blood Pressure 128/11 L Pulse Oximetry 92 93 Oxygen Delivery Method Oxygen Flow Rate Fraction of Inspired Oxygen 12/02/23 10:03 12/02/23 10:05 12/02/23 11:00 Temperature Pulse Rate 91 H 70 Respiratory Rate 19 17 Blood Pressure 141/65 H Pulse Oximetry 91 87 L Oxygen Delivery Method Oxygen Flow Rate Fraction of Inspired Oxygen 12/02/23 11:00 12/02/23 11:05 12/02/23 11:10 Temperature Pulse Rate 77 86 Respiratory Rate 19 22 Blood Pressure 134/71 Pulse Oximetry 88 L 88 L Oxygen Delivery Method Oxygen Flow Rate Fraction of Inspired Oxygen 12/02/23 11:15 12/02/23 11:20 12/02/23 11:25 Temperature Pulse Rate 74 83 83 Respiratory Rate 20 23 21 Blood Pressure Pulse Oximetry 87 L 85 L 83 L Oxygen Delivery Method Oxygen Flow Rate Fraction of Inspired Oxygen 12/02/23 11:30 12/02/23 11:35 12/02/23 11:40 Temperature Pulse Rate 70 69 71 Respiratory Rate 15 24 24 Blood Pressure Pulse Oximetry 95 91 85 L Oxygen Delivery Method Oxygen Flow Rate Fraction of Inspired Oxygen 12/02/23 11:45 12/02/23 11:50 12/02/23 11:55 Temperature Pulse Rate 69 68 70 Respiratory Rate 16 27 H 27 H Blood Pressure Pulse Oximetry 94 90 L 89 L Oxygen Delivery Method Oxygen Flow Rate Fraction of Inspired Oxygen 12/02/23 12:00 12/02/23 12:00 12/02/23 12:01 Temperature 97.4 F L Pulse Rate 72 Respiratory Rate 30 H Blood Pressure 165/77 H Pulse Oximetry 87 L Oxygen Delivery Method Nasal Cannula Oximask Oxygen Flow Rate Fraction of Inspired Oxygen 12/02/23 12:01 12/02/23 12:05 12/02/23 12:10 Temperature Pulse Rate 69 73 70 Respiratory Rate 26 H 26 H 21 Blood Pressure Pulse Oximetry 91 87 L 90 L Oxygen Delivery Method Oxygen Flow Rate Fraction of Inspired Oxygen 12/02/23 12:15 12/02/23 12:20 12/02/23 12:25 Temperature Pulse Rate 71 72 71 Respiratory Rate 21 14 16 Blood Pressure Pulse Oximetry 93 92 90 L Oxygen Delivery Method Oxygen Flow Rate Fraction of Inspired Oxygen 12/02/23 12:30 12/02/23 12:35 12/02/23 12:40 Temperature Pulse Rate 70 70 71 Respiratory Rate 15 16 22 Blood Pressure Pulse Oximetry 92 90 L 90 L Oxygen Delivery Method Oxygen Flow Rate Fraction of Inspired Oxygen 12/02/23 12:45 12/02/23 12:50 12/02/23 12:55 Temperature Pulse Rate 72 90 71 Respiratory Rate 16 29 H 15 Blood Pressure Pulse Oximetry 91 87 L 92 Oxygen Delivery Method Oxygen Flow Rate Fraction of Inspired Oxygen 12/02/23 13:00 12/02/23 13:00 Temperature Pulse Rate 71 Respiratory Rate 15 Blood Pressure 150/77 H Pulse Oximetry 93 Oxygen Delivery Method Oxygen Flow Rate Fraction of Inspired Oxygen Fraction of Inspired Oxygen 40 SaO2/FiO2 Ratio 213 Oxygen Delivery Method Nasal Cannula,Oximask Oxygen Flow Rate 0 Narrative Exam Narrative: NAD, alert and oriented, fluent speech, calm. Obese. Normocephalic skull, EOMI, anicteric sclera, symmetric pupils. Oropharynx unremarkable, no droop. Neck supple, midline trachea, no adenopathy. Lungs with diffuse wheezing, no rhonchi or rales Heart regular, no murmur gallop or rub. Abdomen is soft, non distended and non tender. Extremities are free of edema. Skin is free of rash or lesions. Joints are not swollen or deformed. Judgment appears to be normal. Objective Labs 12/02/23 04:44 12/02/23 04:44 Labs: Laboratory Results - last 24 hr 12/01/23 12/01/23 12/01/23 13:20 14:49 15:33 WBC RBC Hgb Hct MCV MCH MCHC RDW Plt Count Neut % (Auto) Lymph % (Auto) [place] % (Auto) Eos % (Auto) Baso % (Auto) Neut # (Auto) Lymph # (Auto) [place] # (Auto) Eos # (Auto) Baso # (Auto) PT INR ABG Sample Site Right radial ABG pH 7.32 L ABG pCO2 78.4 H* ABG pO2 102 H ABG HCO3 41 H ABG Total CO2 43 H ABG O2 Saturation 97 ABG Base Excess 15.0 H FiO2 50 Sodium 139 Potassium 3.8 Chloride 98 Carbon Dioxide 37 H BUN 8 L Creatinine 0.67 Estimated GFR > 60 BUN/Creatinine Ratio 11.9 Glucose 137 H Calcium 8.0 L Total Bilirubin 0.5 AST 17 ALT 10 Alkaline Phosphatase 71 Troponin I < 0.012 NT-Pro-B Natriuret Pep 2850 H Total Protein 7.5 Albumin 3.7 Globulin 3.8 Albumin/Globulin Ratio 1.0 Nasal Screen MRSA (PCR) Chlamy pneumoniae PCR Not detected Adenovirus (PCR) Not detected B.parapertussis DNA PCR Not detected Coronavirus OC43 (PCR) Not detected Coronavirus HKU1 (PCR) Not detected Coronavirus 229E (PCR) Not detected SARS-CoV-2 (PCR) Not detected Coronavirus NL63 (PCR) Not detected Human Metapneumovir PCR Not detected Influenza Type A (PCR) Not detected Influenza Type B (PCR) Not detected M. pneumoniae (PCR) Not detected Parainfluenza 1 (PCR) Not detected Parainfluenza 2 (PCR) Not detected Parainfluenza 3 (PCR) Not detected Parainfluenza 4 (PCR) Not detected RSV (PCR) Not detected Entero/Rhino (PCR) Detected H 12/01/23 12/02/23 12/02/23 19:00 04:44 06:06 WBC 5.7 RBC 4.67 Hgb 11.0 L Hct 35.9 L MCV 76.8 L MCH 23.5 L MCHC 30.6 RDW 17.9 H Plt Count 292 Neut % (Auto) 62.4 Lymph % (Auto) 19.3 L [place] % (Auto) 11.3 Eos % (Auto) 4.7 H Baso % (Auto) 2.3 H Neut # (Auto) 3500 Lymph # (Auto) 1100 [place] # (Auto) 600 Eos # (Auto) 300 Baso # (Auto) 100 PT 21.6 H INR 1.9 H ABG Sample Site ABG pH ABG pCO2 ABG pO2 ABG HCO3 ABG Total CO2 ABG O2 Saturation ABG Base Excess FiO2 Sodium 139 Potassium 3.8 Chloride 97 L Carbon Dioxide 40 H* BUN 10 Creatinine 0.61 L Estimated GFR > 60 BUN/Creatinine Ratio 16.4 Glucose 120 H Calcium 7.7 L Total Bilirubin AST ALT Alkaline Phosphatase Troponin I NT-Pro-B Natriuret Pep Total Protein Albumin Globulin Albumin/Globulin Ratio Nasal Screen MRSA (PCR) Detected H Chlamy pneumoniae PCR Adenovirus (PCR) B.parapertussis DNA PCR Coronavirus OC43 (PCR) Coronavirus HKU1 (PCR) Coronavirus 229E (PCR) SARS-CoV-2 (PCR) Coronavirus NL63 (PCR) Human Metapneumovir PCR Influenza Type A (PCR) Influenza Type B (PCR) M. pneumoniae (PCR) Parainfluenza 1 (PCR) Parainfluenza 2 (PCR) Parainfluenza 3 (PCR) Parainfluenza 4 (PCR) RSV (PCR) Entero/Rhino (PCR) PFSH Medical History Decubitus ulcers Chronic respiratory failure with hypoxia and hypercapnia Pulmonary embolism Congestive heart failure Morbid obesity Social History household members: family and friend(s) Smoking Status: Former smoker alcohol intake: never Assessment & Plan Assessment & Plan narrative: 1. Acute hypoxic and hypercarbic respiratory failure with chronic hypoxic respiratory failure. Present on admission and active. 2. Carbon dioxide retainer, present on admission and active. 3. Rhino virus respiratory infection, present on admission and active. 4. Probable obesity hypoventilation syndrome, present on admission and active. 5. Acute pulmonary edema, present on admission and active. No echo data is available here. 6. Pulmonary embolism, chronic. Present on admission and active. 7. Bilateral posterior thigh and buttock ulcers, present on admission and active. 8. Methadone maintenance independence, present on admission and active. 9. Super morbid obesity with BMI of 81.4, present on admission and active. 10. asthma exacerbation Plan: -wean oxygen to saturations of 88-90%. Monitor for evidence of hypercarbia with hypersomnolence. BiPAP if needed. Was quite wheezy on exam, started prednisone 40 mg daily with hx of asthma x5 days. Albuterol prn ordered. -supportive care for rhino virus infection. No antibiotics at this time. -continue diuresis with IV furosemide. Still on oxygen this morning. -warfarin per pharmacy, indication DVT pulmonary embolism. -resumed home methadone though reduced to 100 mg daily, try to reduce with Changed to inpatient status He is full resuscitation. Mother is proxy decision maker. Time Spent With Patient Time with patient: 30 to 49 minutes with 50% spent counseling/coordinating care Quality VTE Deep Vein Thrombosis/Pulmonary Embolism Present on Admission: No
--- NOTE | 2023-12-02 14:09 | CM.DPNOTE ---
Addendum entered by ARVIND Obrien 12/02/23 14:24: From RN, anticipate pt not having HH or OP wound care needs at this time. SL Original Note: DCP Note PLANT TECH reviewed EMR. Per hospitalist in morning rounds, unclear dc timeline at this time. Per PN, improving on O2, plan is to continue to wean O2 back to baseline. Per nursing staff, pt was able to transfer from bed to chair and mobilize at baseline. Pt uses w/c or two canes at baseline. PLANT TECH met with pt in room. Pt sitting up in bed and on his phone, semi engaged in DCP conversation with this author. Pt reports he does not need anymore information on access to housing and that his mother talked with ED SW yesterday. Pt reports open to PCP, could start here and then move PCP pending on where he ends up living. PLANT TECH gave him copy of PCPs in area that accept his insurance accepting new pts. Pt reports he is established with [facility] for methadone. Was concerned about getting his methadone today because he missed yesterday. PLANT TECH updated RN, RN inquired to hospitalist about adding it to his home med list. Pt reports he is unsure about Medicaid transport benefit. He is enrolled with [facility]. Pt denies him being enrolled in other community programs or resources. Pt reports his mother will likely be the plan to transport home. Plan: anticipate return to hotel with mother/sister/friend support. Will continue to monitor for HH r/o at dc for RN/wound care needs? CM team will continue to follow closely. ARVIND Obrien
[2023-12-02] MEDS: WARFARIN 5 MG TABLET PO (17:35)
[2023-12-03] VITALS (179 sets, daily range): BP systolic 142–162; BP diastolic 64–84; PULSE 63–93; RESP 10–48; TEMP 35.9–37; O2SAT 81–97
[2023-12-03] MEDS: ALBUTEROL 2.5 MG/3 ML NEB (ADULT) INH ×2 (04:26→19:53)
[2023-12-03] MEDS: FUROSEMIDE 40 MG/4 ML VIAL IV ×2 (06:09→18:27)
[2023-12-03] MEDS: PANTOPRAZOLE DR 20 MG TABLET PO (06:09)
[2023-12-03] MEDS: ACETAMINOPHEN 325 MG TABLET 650 MG PO (06:24)
[2023-12-03] MEDS: DOCUSATE 100 MG CAPSULE PO ×2 (08:42→20:44)
[2023-12-03] MEDS: METFORMIN XR 500 MG TABLET PO ×2 (08:43→20:44)
[2023-12-03] MEDS: POTASSIUM CHLORIDE 20 MEQ TAB PO (08:43)
[2023-12-03] MEDS: ENOXAPARIN 100 MG/ML SYRINGE 200 MG SUBCUT ×2 (08:43→20:44)
[2023-12-03] MEDS: predniSONE 20 MG TABLET 40 MG PO (08:44)
[2023-12-03] MEDS: SODIUM CHLORIDE 0.9% FLUSH 10 ML IV ×2 (08:45→20:45)
[2023-12-03] MEDS: METHADONE INTENSOL 10 MG/ML ORAL.CONC 100 MG PO (08:59)
--- NOTE | 2023-12-03 10:37 | CM.DPNOTE ---
DCP Note PROTOCOL MANAGER reviewed EMR. per hospitalist in morning multidisciplinary rounds, pt remains on 3ltrs. (baseline O2 is 1.5ltrs). Likely will remain here another few days. CM team will continue to inquire about if there is a PT/OT eval need. PROTOCOL MANAGER team will continue to follow closely for additional social work needs. PROTOCOL MANAGER lvm with [facility] to inquire about Medicaid transportation benefits for pt. Plan: home to [facility] with family support when medically stable/closer to baseline O2. hospital staff will assist in establishing new SOC with PCP here at [facility]. Transport likely with mother in POV. ARVIND Obrien
[2023-12-03 13:39] LABS: Add Manual Diff / Slide Review NO; Basophils Absolute Auto 0 /uL (0-100); Basophils Percent Auto 0.8 % (0-2); Eosinophils Absolute Auto 0 /uL (0-450); Eosinophils Percent Auto 0.4 % (2-4); Hematocrit 36.7 % (41-53); Hemoglobin 11.2 g/dL (13.5-17.5); Lymphocytes Absolute Auto 500 /uL (1100-4500); Lymphocytes Percent Auto 8.4 % (25-40); Mean Corpuscular HGB Conc 30.7 % (30-36); Mean Corpuscular Hemoglobin 23.5 PG (26-34); Mean Corpuscular Volume 76.5 fL (80-100); Monocytes Absolute Auto 300 /uL (0-900); Neutrophils Absolute Auto 5400 /uL (1500-7000); Neutrophils Percent Auto 86.4 % (50-75); Platelet Count 351 X10^3/uL (150-400); Red Blood Cell Count 4.79 X10^6/uL (4.5-5.9); Red Cell Distribution Width 17.4 % (11.6-14.8); White Blood Cell Count 6.3 X10^3/uL (4.5-11.0)
--- NOTE | 2023-12-03 15:12 | P.PN_ITS ---
Subjective Subjective Interval history: Improved breathing but still short of breath, though improving O2 requirements. No chest pain. Cough improved. Exam Vital Signs (past 8 hours): - 12/03/23 07:15 12/03/23 07:20 12/03/23 07:25 Temperature Pulse Rate 69 70 71 Respiratory Rate 21 18 18 Blood Pressure Pulse Oximetry 90 L 91 93 12/03/23 07:30 12/03/23 07:35 12/03/23 07:40 Temperature Pulse Rate 74 71 69 Respiratory Rate 14 18 12 Blood Pressure Pulse Oximetry 92 93 94 12/03/23 07:42 12/03/23 07:42 12/03/23 07:45 Temperature 98.5 F Pulse Rate 69 69 Respiratory Rate 22 12 Blood Pressure 142/67 H Pulse Oximetry 91 93 12/03/23 07:50 12/03/23 07:55 12/03/23 08:00 Temperature Pulse Rate 71 68 68 Respiratory Rate 24 18 25 H Blood Pressure Pulse Oximetry 92 93 91 12/03/23 08:05 12/03/23 08:10 12/03/23 08:15 Temperature Pulse Rate 69 67 66 Respiratory Rate 19 16 17 Blood Pressure Pulse Oximetry 89 L 89 L 92 12/03/23 08:20 12/03/23 08:25 12/03/23 08:25 Temperature Pulse Rate 63 63 Respiratory Rate 19 19 Blood Pressure 155/75 H Pulse Oximetry 95 95 12/03/23 08:30 12/03/23 08:35 12/03/23 08:40 Temperature Pulse Rate 63 67 64 Respiratory Rate 18 32 H 18 Blood Pressure Pulse Oximetry 93 93 95 12/03/23 08:45 12/03/23 08:50 12/03/23 08:55 Temperature Pulse Rate 67 68 70 Respiratory Rate 21 20 23 Blood Pressure Pulse Oximetry 95 94 95 12/03/23 09:00 12/03/23 09:05 12/03/23 09:10 Temperature Pulse Rate 74 64 72 Respiratory Rate 33 H 16 28 H Blood Pressure Pulse Oximetry 87 L 94 94 12/03/23 09:15 12/03/23 09:20 12/03/23 09:25 Temperature Pulse Rate 72 71 74 Respiratory Rate 20 25 H 20 Blood Pressure Pulse Oximetry 92 93 93 12/03/23 09:30 12/03/23 09:35 05/08/24 09:40 Temperature Pulse Rate 71 68 71 Respiratory Rate 17 13 14 Blood Pressure Pulse Oximetry 94 95 93 12/03/23 09:45 12/03/23 09:50 12/03/23 09:55 Temperature Pulse Rate 68 67 66 Respiratory Rate 12 15 15 Blood Pressure Pulse Oximetry 94 95 94 12/03/23 10:00 12/03/23 10:05 12/03/23 10:10 Temperature Pulse Rate 68 68 68 Respiratory Rate 19 14 14 Blood Pressure Pulse Oximetry 94 94 94 12/03/23 10:15 12/03/23 10:20 12/03/23 10:25 Temperature Pulse Rate 73 68 68 Respiratory Rate 20 16 15 Blood Pressure Pulse Oximetry 95 95 92 12/03/23 10:30 12/03/23 10:35 12/03/23 10:40 Temperature Pulse Rate 67 66 69 Respiratory Rate 15 14 14 Blood Pressure Pulse Oximetry 94 93 93 12/03/23 10:45 12/03/23 10:50 12/03/23 10:55 Temperature Pulse Rate 63 63 67 Respiratory Rate 18 13 18 Blood Pressure Pulse Oximetry 91 93 95 12/03/23 11:00 12/03/23 11:05 12/03/23 11:10 Temperature Pulse Rate 67 72 71 Respiratory Rate 15 19 18 Blood Pressure Pulse Oximetry 94 91 95 12/03/23 11:15 12/03/23 11:20 12/03/23 11:25 Temperature Pulse Rate 66 63 63 Respiratory Rate 17 21 14 Blood Pressure Pulse Oximetry 93 97 93 12/03/23 11:30 12/03/23 11:35 12/03/23 11:40 Temperature Pulse Rate 64 70 77 Respiratory Rate 17 48 H 46 H Blood Pressure Pulse Oximetry 95 94 91 12/03/23 11:45 12/03/23 11:50 12/03/23 11:55 Temperature Pulse Rate 67 66 68 Respiratory Rate 13 17 20 Blood Pressure Pulse Oximetry 93 93 92 12/03/23 12:00 12/03/23 12:05 12/03/23 12:10 Temperature Pulse Rate 68 68 72 Respiratory Rate 15 22 21 Blood Pressure Pulse Oximetry 93 93 94 12/03/23 12:15 12/03/23 12:20 12/03/23 12:25 Temperature Pulse Rate 77 85 76 Respiratory Rate 27 H 23 24 Blood Pressure Pulse Oximetry 92 93 92 12/03/23 12:30 12/03/23 12:35 12/03/23 12:40 Temperature Pulse Rate 74 70 69 Respiratory Rate 24 16 25 H Blood Pressure Pulse Oximetry 91 90 L 92 12/03/23 12:45 12/03/23 12:50 12/03/23 12:55 Temperature Pulse Rate 75 74 75 Respiratory Rate 25 H 21 31 H Blood Pressure Pulse Oximetry 93 93 92 12/03/23 13:00 12/03/23 13:05 12/03/23 13:10 Temperature Pulse Rate 69 67 71 Respiratory Rate 17 21 18 Blood Pressure Pulse Oximetry 92 93 94 12/03/23 13:15 12/03/23 13:20 12/03/23 13:25 Temperature Pulse Rate 71 69 69 Respiratory Rate 18 20 17 Blood Pressure Pulse Oximetry 94 91 93 12/03/23 13:30 Temperature Pulse Rate 68 Respiratory Rate 22 Blood Pressure 142/64 H Pulse Oximetry 91 Fraction of Inspired Oxygen 40 SaO2/FiO2 Ratio 213 Oxygen Delivery Method Oximask Oxygen Flow Rate 3 Narrative Exam Narrative: NAD, alert and oriented, fluent speech, calm. Obese. Normocephalic skull, EOMI, anicteric sclera, symmetric pupils. Oropharynx unremarkable, no droop. Neck supple, midline trachea, no adenopathy. Lungs with diffuse wheezing, no rhonchi or rales Heart regular, no murmur gallop or rub. Abdomen is soft, non distended and non tender. Extremities are free of edema. Skin is free of rash or lesions. Joints are not swollen or deformed. Judgment appears to be normal. Objective Labs 12/03/23 13:30 12/02/23 04:44 Labs: Laboratory Results - last 24 hr 12/03/23 13:30 WBC 6.3 RBC 4.79 Hgb 11.2 L Hct 36.7 L MCV 76.5 L MCH 23.5 L MCHC 30.7 RDW 17.4 H Plt Count 351 Neut % (Auto) 86.4 H D Lymph % (Auto) 8.4 L Josephine % (Auto) 4.0 Eos % (Auto) 0.4 L Baso % (Auto) 0.8 Neut # (Auto) 5400 Lymph # (Auto) 500 L Josephine # (Auto) 300 Eos # (Auto) 0 Baso # (Auto) 0 PFSH Medical History Decubitus ulcers Chronic respiratory failure with hypoxia and hypercapnia Pulmonary embolism Congestive heart failure Morbid obesity Social History household members: family and friend(s) Smoking Status: Former smoker alcohol intake: never Assessment & Plan Assessment & Plan narrative: 1. Acute hypoxic and hypercarbic respiratory failure with chronic hypoxic respiratory failure. Present on admission and active. 2. Carbon dioxide retainer, present on admission and active. 3. Rhino virus respiratory infection, present on admission and active. 4. Probable obesity hypoventilation syndrome, present on admission and active. 5. Acute pulmonary edema, present on admission and active. No echo data is available here. 6. Pulmonary embolism, chronic. Present on admission and active. 7. Bilateral posterior thigh and buttock ulcers, present on admission and active. 8. Methadone maintenance independence, present on admission and active. 9. Super morbid obesity with BMI of 81.4, present on admission and active. 10. asthma exacerbation Plan: -wean oxygen to saturations of 88-90%. Monitor for evidence of hypercarbia with hypersomnolence. BiPAP if needed. Improving wheezing today, continue prednisone 40 mg daily with hx of asthma x5 days. Albuterol prn ordered. -supportive care for rhino virus infection. No antibiotics at this time. -continue diuresis with IV furosemide. Still on oxygen this morning. -warfarin per pharmacy, indication DVT pulmonary embolism. -resumed home methadone though reduced to 100 mg daily, try to reduce with inpatient status, home with improved O2 requirements. At baseline he is on intermittent O2 only at 2-3 L. He is full resuscitation. Mother is proxy decision maker. Time Spent With Patient Time with patient: 30 to 49 minutes with 50% spent counseling/coordinating care Quality VTE Deep Vein Thrombosis/Pulmonary Embolism Present on Admission: No
[2023-12-03 17:14] LABS: INR 1.9 (0.9-1.3); Prothrombin Time 21.5 SECONDS (9.4-12.5)
[2023-12-03 17:18] LABS: BUN Creatinine Ratio 24.2 (6-22); Blood Urea Nitrogen 16 mg/dL (9-20); Calcium 8.2 mg/dL (8.4-10.2); Chloride 95 mmol/L (98-107); Estimated Glomerular Filt Rate > 60 mL/min (>60); Glucose 134 mg/dL (70-100); Potassium 4.5 mmol/L (3.4-5.1); Sodium 138 mmol/L (137-145)
[2023-12-03 17:24] LABS: HEMOLYSIS 16 (0-50)
[2023-12-03] MEDS: WARFARIN 5 MG, WARFARIN 2.5 MG 7.5 MG PO (17:25)
[2023-12-03 17:28] LABS: Carbon Dioxide 40 mmol/L (22-32)
--- NOTE | 2023-12-03 21:18 | PC.NURSE ---
Several used pcs. of aluminum foils and 1 unused foil and 2 lighters found in pts. belongings. Also found is a rubber tube pencil size is. Asked pt. what it is for and pt. answered it's a paraphernalia. Asked pt. what substance was in the foil and pt. answered it's remnants of oxy. Pt. aslo advise this nurse to make sure to change my glove. All used and unused aluminum foil removed from pt's belongings including the 2 lighters and the rubber tube and gave it to Leslie, the coordinator marianne. Informed pt. that those items will be return to him on discharge. Inform also pt. that substance use inside the hospital is prohibited.
[2023-12-04] VITALS (76 sets, daily range): BP systolic 129–153; BP diastolic 60–78; PULSE 55–100; RESP 0–46; TEMP 35.9–36.6; O2SAT 85–97
[2023-12-04] MEDS: ALBUTEROL 2.5 MG/3 ML NEB (ADULT) INH (05:18)
[2023-12-04] MEDS: PANTOPRAZOLE DR 20 MG TABLET PO (05:32)
[2023-12-04 06:17] LABS: Prothrombin Time 23.5 SECONDS (9.4-12.5)
[2023-12-04] MEDS: FUROSEMIDE 40 MG/4 ML VIAL IV (06:37)
[2023-12-04 06:39] LABS: BUN Creatinine Ratio 27.3 (6-22); Blood Urea Nitrogen 18 mg/dL (9-20); Calcium 8.2 mg/dL (8.4-10.2); Chloride 95 mmol/L (98-107); Estimated Glomerular Filt Rate > 60 mL/min (>60); Glucose 80 mg/dL (70-100); Potassium 3.8 mmol/L (3.4-5.1); Sodium 139 mmol/L (137-145)
[2023-12-04 06:46] LABS: Carbon Dioxide 39 mmol/L (22-32); HEMOLYSIS 42 (0-50)
[2023-12-04] MEDS: POTASSIUM CHLORIDE 20 MEQ TAB PO (09:17)
[2023-12-04] MEDS: predniSONE 20 MG TABLET 40 MG PO (09:18)
[2023-12-04] MEDS: METFORMIN XR 500 MG TABLET PO (09:18)
[2023-12-04] MEDS: SODIUM CHLORIDE 0.9% FLUSH 10 ML IV (09:18)
[2023-12-04] MEDS: ENOXAPARIN 100 MG/ML SYRINGE 200 MG SUBCUT (09:18)
[2023-12-04] MEDS: METHADONE INTENSOL 10 MG/ML ORAL.CONC 100 MG PO (09:28)
--- NOTE | 2023-12-04 11:20 | PT.IIE ---
Current Diagnoses Other viral agents as the cause of diseases classified elsewhere (12/01/23) Medical History (Last Reviewed 12/01/23 @ 17:59 by Elvis Viera MD) Chronic respiratory failure with hypoxia and hypercapnia Congestive heart failure Decubitus ulcers Morbid obesity Pulmonary embolism Physical Therapy Inpatient Evaluation/Re-Eval M1 PT/OT-IP Prior Functional Status Start: 12/04/23 08:35 Freq: NEEDED Status: Active Protocol: Document 12/04/23 10:30 MB (Rec: 12/04/23 11:20 MB [id number]) Medical Review Prior Functional Status Medical History Reviewed Yes Diet/Fluid Consistency Regular Communication WNLs Mobility and Gait Short distance gait with QC and walking stick, one in each hand Activities of Daily Living and IADL's Pt is not descriptive about self-care, showering, dressing , doing laundry when asked and states that he and his mom and sister are living in the car right now Social History Household Members family,friend(s) Living Arrangements Homeless Home Equipment Quad Cane Additional Social History Comment Pt states that he is on disability and that he and his mom and sister are currently unhoused and living in a car M2 PT-IP Current Condition Start: 12/04/23 08:35 Freq: NEEDED Status: Active Protocol: Document 12/04/23 10:30 MB (Rec: 12/04/23 11:20 MB [id number]) Physical Therapy Current Condition Current Condition Evaluation Date 12/04/23 Treatment Diagnosis Decreased O2 sats, coughing up blood M3 PT-IP Subjective Start: 12/04/23 08:35 Freq: NEEDED Status: Active Protocol: Document 12/04/23 10:30 MB (Rec: 12/04/23 11:20 MB [id number]) Subjective Physical Therapy Visit Type Type Initial Evaluation Visit Start Time 10:30 Visit Stop Time 11:07 Number of ENGINEERING DESIGN SUPERVISOR Visits 0 Physical Therapy Visit Comments Patient Comments Pt states that he is feeling okay. His mom and sister are also sick and have a hotel room for a couple of nights. Therapy Pain Assessment Location Wound areas near buttocks Intensity 8 Scale Used Numeric (0 - 10) M4 PT-IP Mobility and Gait Start: 12/04/23 08:35 Freq: NEEDED Status: Active Protocol: Document 12/04/23 10:30 MB (Rec: 12/04/23 11:20 MB [id number]) PT-Bed Mobility Assessment Rolling Type of Rolling Roll to Right Level of Assist Standby Assistance,1 Person Assistance Supine to Sit Supine to Sit Standby Assistance,1 Person Assistance,Head of Bed Elevated,Bedrails Scooting Scooting to Edge of Bed Standby Assistance PT-Transfer Assessment Sit to and From Stand Sit to and from Stand Standby Assistance,1 Person Assistance,Use of Upper Extremities Equipment Transfer Assistive Device Small Based Quad Cane Orthotic/Prosthetic Devices or Brace: No Transfers Transfer Destination Bed Transfer Technique Stepping Transfer Ability Level of Assist Standby Assistance,1 Person Assistance,Use of Upper Extremities Comments Mobility Comments Pt steps with QC in one hand and walking stick in the other , step to gait Gait Assessment Gait Gait Assistance Required: Standby Assistance Distance (Feet) 15 Able to Maintain Weight Bearing Status Yes During Gait Assistive Devices Assistive Device Small Based Quad Cane Orthotic/Prosthetic Devices or Brace: No Gait Deviations General Gait Pattern Antalgic,Decreased Stride Length,Decreased Feet Clearance,Flexed Trunk,Step-to Gait,Wide Based Gait Factors Limiting Gait Function Factors Limiting Gait Function Decreased Activity Tolerance, Pain Comments Gait Comments Pt steps up and down the length of the bed 3 times with both QC and walking stick with step-to pattern and antalgic gait PT-Balance Assessment Sitting Balance and Reactions Static Sitting Balance Ability Good Dynamic Sitting Balance Ability Good Standing Balance and Reactions Static Standing Balance Ability Good Dynamic Standing Balance Ability Good Device Used QC and walking stick M5 PT-IP Objective Assessments Start: 12/04/23 08:35 Freq: NEEDED Status: Active Protocol: Document 12/04/23 10:30 MB (Rec: 12/04/23 11:20 MB [id number]) Orientation Orientation/Cognition Level of Alertness Alert Language Function Ability No Deficits Noted Safety Awareness Understands Safety Issues Memory Description No Deficits Noted Gross Range of Motion Upper Extremity ROM Impairments Defer to OT Lower Extremity ROM Assessment Within Functional Limits Strength Comments Strength Comments MMT deferred and strength functional for minimal mobility M7 PT-IP Assessment and Plan Start: 12/04/23 08:35 Freq: NEEDED Status: Active Protocol: Document 12/04/23 10:30 MB (Rec: 12/04/23 11:20 MB [id number]) PT Summary Assessment and Plan Potential Rehabilitation Potential Fair Status of Condition at Evaluation Evolving Summary Impairments Pain,Balance,Bed Mobility, Transfers,Gait,Activity Tolerance Progress Towards Goals Progressing Toward Goals Assessment Summary Pt states that his mobilization is close to baseline. He has been sleeping in a car and so unsure how his bed mobility is at baseline. He used HOB and bed controls for SBA for bed mobility today. Similarly, he cannot describe how longer distance ambulation or ADLs were going at baseline given currently living situation. PT provides max A to don socks and mod A to don shoes in slip on manner. He mobilizes short distances in the room with QC and walking stick and O2 sats remain in the high 90s on 2L O2. STS transfer from bed with SBA and static sitting balance EOB is good. Goals Bed Mobility Goal Independent Transfer Goal Independent,Cane Gait Goal Independent,Cane Gait Distance 50 Other Goals Gait will be with QC in one hand and walking stick in the other Days to Meet Goals 5 Frequency of Treatment Frequency Of Treatment Once a Day Treatment Plan Physical Therapy Treatment Plan Bed Mobility Training,Transfer Training,Gait Training, Therapeutic Exercise,Balance Retraining,Discharge Planning, Neuromuscular Re-ed, Coordination Retraining Weight Bearing Status Weight Bearing Status Weight Bear as Tolerated Recommendations To Nursing Amount of Assist Needed 1 Person Assist Discharge Recommendations PT Discharge Recommendations Home with Assistance Transportation Needs at Discharge Private Vehicle
--- NOTE | 2023-12-04 11:22 | PM.DS.1 ---
History of Present Illness History of Present Illness Date Patient Seen: 12/04/23 Time Patient Seen: 10:00 Chief complaint: low oxygen, coughing up foamy red Narrative: Per admitting provider, Patient was a [age]-year-old male with a history of super morbid obesity and BMI of 81 0.4. He is oxygen dependent and uses oxygen some of the time. He has a history of methadone dependence as well as history of pulmonary embolism on warfarin and congestive heart failure as well as restrictive lung disease. He has been through a lot in terms of stability of living. And because of this was off all medications for about a week, back on for 2 days, and then off for 2 days. He presented to the ED today with dyspnea. The patient was noting rhinorrhea and a cough. His PCR in the ED was positive for rhino virus. Upon arrival in the ED he was 81% on 1.5 L and had a lot of exertional dyspnea. The patient was placed on oxygen and then developed hypercapnia and required BiPAP. The patient was ultimately taken off from BiPAP and transferred up stairs and doing well. He was able to transfer with 2 canes from 1 bed to another. He denies recent chest pain, orthopnea. He would some extra edema about a week ago but less now. He lives with his girlfriend, mother and sister. They recently moved into a local motel within the last 2 days. He also has multiple skin ulcers over the superior aspect of the back of both thighs. These had been healed but with his recent housing instability and staying in a car for several days these have become active again. He denies any diarrhea, and has a bowel movement about every other day. He uses a urinal to urinate denies any change of urine in terms of frequency, or quality. Discharge Providers Provider Date of admission: 12/01/23 16:35 Discharge Date: 12/04/23 Primary care physician: Doctor Murali MD Consults: 12/01/23 12:27 Consult to [facility] - [employer]er Stat Comment: unsafe living situation 12/01/23 17:51 Consult to [facility] - [employer] Dealer Routine Comment: 12/03/23 16:08 Consult to Occupational Therapy Evaluate & Treat Comment: Physician Instructions: Evaluate and treat Consult to Physical Therapy Evaluate & Treat Comment: Physician Instructions: Evaluate and Treat Discharge provider: Arden Hall, DO Summary Hospital Course Discharge Diagnosis: 1. Acute on chronic hypoxic and hypercarbic respiratory failure. Present on admission and active. 2. Carbon dioxide retainer, present on admission and active. 3. Rhino virus respiratory infection, present on admission and active. 4. Probable obesity hypoventilation syndrome, present on admission and active. 5. Acute pulmonary edema, present on admission and active. No echo data is available here. 6. Pulmonary embolism, chronic. Present on admission and active. 7. Bilateral posterior thigh and buttock ulcers, present on admission and active. 8. Methadone maintenance independence, present on admission and active. 9. Super morbid obesity with BMI of 81.4, present on admission and active. 10. asthma exacerbation, present on admission. Hospital Course: This is a 38 year old male with super-massive obesity with BMI of 85.2, chronic hypoxemic and hypercapnic respiratory failure who was admitted for acute on chronic hypoxemic and hypercapnic respiratory failure in the setting of rhinovirus infection and presumed asthma exacerbation. He was started on steroids, and oxygen was able to be weaned to his usual 2L with improvement in respiratory symptoms. Patient was noted to have fentanyl likely in his room during his stay which may have contributed somewhat to his presentation as well though this is not entirely clear at the time of discharge. He had history of PE and INR was 1.9, coumadin was continued. He was also diuresed with furosemide 40 mg IV BID (on 40 mg PO daily at home). TTE was not performeed as it would not likely exchange engineer and symptoms were more consistent with asthma exacerbation rather than heart failure. With improvement to baseline oxygen, and improvement in symptoms, patient was discharged home. He will complete another 3 days of prednisone at home for asthma exacerbation. No other changes to his home medications were recommended at discharge. Time Spent with Patient Time spent: Greater than 30 minutes Exam Vital Signs (past 8 hours): - 12/04/23 05:09 12/04/23 05:18 12/04/23 07:00 Temperature 96.7 F L Pulse Rate 55 L 56 L Respiratory Rate 17 12 Blood Pressure 153/72 H Pulse Oximetry 97 96 Oxygen Delivery Method Nasal Cannula Nasal Cannula Oxygen Flow Rate 3 3 Fraction of Inspired Oxygen 32 12/04/23 07:20 12/04/23 07:25 12/04/23 07:30 Temperature Pulse Rate 61 67 68 Respiratory Rate 16 24 21 Blood Pressure Pulse Oximetry 93 89 L 90 L Oxygen Delivery Method Oxygen Flow Rate Fraction of Inspired Oxygen 12/04/23 07:35 12/04/23 07:40 12/04/23 07:45 Temperature Pulse Rate 82 72 85 Respiratory Rate 29 H 26 H 38 H Blood Pressure Pulse Oximetry 90 L 92 94 Oxygen Delivery Method Oxygen Flow Rate Fraction of Inspired Oxygen 12/04/23 07:50 12/04/23 07:55 12/04/23 08:00 Temperature Pulse Rate 77 67 66 Respiratory Rate 24 23 27 H Blood Pressure Pulse Oximetry 92 90 L 90 L Oxygen Delivery Method Oxygen Flow Rate Fraction of Inspired Oxygen 12/04/23 08:03 12/04/23 08:03 12/04/23 08:05 Temperature 97.6 F Pulse Rate 69 66 Respiratory Rate 14 13 Blood Pressure 129/60 Pulse Oximetry 93 93 Oxygen Delivery Method Oxygen Flow Rate Fraction of Inspired Oxygen 12/04/23 08:10 12/04/23 08:15 12/04/23 08:20 Temperature Pulse Rate 69 70 68 Respiratory Rate 18 30 H 19 Blood Pressure Pulse Oximetry 94 95 93 Oxygen Delivery Method Oxygen Flow Rate Fraction of Inspired Oxygen 12/04/23 08:25 12/04/23 08:30 12/04/23 08:35 Temperature Pulse Rate 67 69 78 Respiratory Rate 33 H 16 20 Blood Pressure Pulse Oximetry 91 90 L 96 Oxygen Delivery Method Oxygen Flow Rate Fraction of Inspired Oxygen 12/04/23 08:40 12/04/23 08:45 12/04/23 08:50 Temperature Pulse Rate 91 H 90 95 H Respiratory Rate 28 H 46 H 24 Blood Pressure Pulse Oximetry 95 95 95 Oxygen Delivery Method Oxygen Flow Rate Fraction of Inspired Oxygen 12/04/23 08:55 12/04/23 09:00 12/04/23 09:05 Temperature Pulse Rate 81 76 80 Respiratory Rate 20 18 26 H Blood Pressure Pulse Oximetry 94 94 93 Oxygen Delivery Method Oxygen Flow Rate Fraction of Inspired Oxygen Fraction of Inspired Oxygen 32 SaO2/FiO2 Ratio 300 Oxygen Delivery Method Nasal Cannula Oxygen Flow Rate 3 Narrative Exam Narrative: NAD, alert and oriented, fluent speech, calm. Obese. Normocephalic skull, EOMI, anicteric sclera, symmetric pupils. Oropharynx unremarkable, no droop. Neck supple, midline trachea, no adenopathy. Lungs with diffuse wheezing, no rhonchi or rales Heart regular, no murmur gallop or rub. Abdomen is soft, non distended and non tender. Extremities are free of edema. Skin is free of rash or lesions. Joints are not swollen or deformed. Judgment appears to be normal. Objective Labs 12/03/23 13:30 12/04/23 05:55 Labs: Laboratory Results - last 24 hr 12/03/23 12/03/23 12/04/23 13:30 16:45 05:55 WBC 6.3 RBC 4.79 Hgb 11.2 L Hct 36.7 L MCV 76.5 L MCH 23.5 L MCHC 30.7 RDW 17.4 H Plt Count 351 Neut % (Auto) 86.4 H D Lymph % (Auto) 8.4 L [place] % (Auto) 4.0 Eos % (Auto) 0.4 L Baso % (Auto) 0.8 Neut # (Auto) 5400 Lymph # (Auto) 500 L [place] # (Auto) 300 Eos # (Auto) 0 Baso # (Auto) 0 PT 21.5 H 23.5 H INR 1.9 H 2.0 H Sodium 138 139 Potassium 4.5 3.8 Chloride 95 L 95 L Carbon Dioxide 40 H* 39 H BUN 16 18 Creatinine 0.66 0.66 Estimated GFR > 60 > 60 BUN/Creatinine Ratio 24.2 H 27.3 H Glucose 134 H 80 Calcium 8.2 L 8.2 L PFSH Medical History Decubitus ulcers Chronic respiratory failure with hypoxia and hypercapnia Pulmonary embolism Congestive heart failure Morbid obesity Social History household members: family and friend(s) Smoking Status: Former smoker alcohol intake: never Discharge Plan Discharge Plan Patient Disposition: Home Provider Discharge Comment: You were admitted to the hospital with shortness of breath, treated for viral pneumonia and asthma exacerbation. Improved with steroids, stable for discharge. Discharge orders & Medications Prescriptions: New prednisone 20 mg Tablet 40 mg PO DAILY 3 Days Qty: 6 0RF albuterol sulfate 90 mcg/actuation HFA aerosol inhaler 2 puff inhalation Q6H PRN (Reason: shortness of breath or wheezing) Qty: 8.5 0RF Continued docusate sodium 100 mg capsule 100 mg PO DAILY Patient Comments: pt has not had med avail to take furosemide 40 mg tablet 40 mg PO DAILY potassium chloride 20 mEq tablet,ER particles/crystals 20 meq PO DAILY warfarin 5 mg tablet 5 mg PO DAILY Rx Instructions: alternates 5mg with 7.5 mg polyethylene glycol 3350 17 gram/dose powder 17 g PO DAILY PRN (Reason: Constipation) methadone 10 mg Tablet 110 mg PO DAILY metformin 500 mg tablet extended release 24 hr 500 mg PO BID 90 Days Qty: 180 0RF Discontinued omeprazole 20 mg capsule,delayed release(DR/EC) 20 mg PO DAILY Patient Comments: hasn't been taking Follow up/Referrals: Miscellaneous,Doctor, [Primary Care Provider] - Diet/Activity/Treatments Diet: Diet as Tolerated and Regular Activity: As tolerated, no restrictions Oxygen: Continue home oxygen as needed, goal O2 90-96%. Visit Report/Discharge Packet Stand Alone Forms: Patient Portal/API, Stroke Signs & Symptoms Discharge Data Primary Care Provider: Murali,Doctor Quality VTE Deep Vein Thrombosis/Pulmonary Embolism Present on Admission: No
--- NOTE | 2023-12-04 12:51 | CM.DPC ---
Addendum entered by ARVIND Jennings 12/04/23 13:07: Per hospitalist, pt does not need outpatient wound care referral at this time. Original Note: DCP Continued: [employer] TANKER DRIVER reviewed EMR and discussed pt in team rounds. Per hospitalist, pt is cleared for dc back home to [facility] with family since pt is back at baseline O2 saturation. HA[employer]ARDOUS [employer] TANKER DRIVER entered room and met with pt, introduced self and role. Pt was found sitting upright in bed, eating lunch. Pt confirmed he is ready for dc, inquired about acquiring bariatric DME such as a bedside commode and/or wheelchair. HA[employer]ARDOUS MATERIALS TANKER DRIVER discussed this could be prescribed via PCP. [employer] TANKER DRIVER asked if she could set up PCP on pt's behalf, pt asked to continue to review materials provided to him earlier and he will reach out to PCP offices to establish care. For now, pt confirms he has been obtaining primary care through [facility]. HAZARDOUS MATERIALS TANKER DRIVER provided pt with list of Durable Medical Equipment retailers and agencies who could loan pt with equipment. Pt denied any other dc needs at this time, prepared to dc after lunch. Plan: Discharge to [facility] with mother and family, mother to transport pt. BARBARA Cheek
--- NOTE | 2023-12-04 13:11 | OT.IPNOTE ---
Pt being discharged and per chart back to his baseline needs.
--- NOTE | 2023-12-09 15:10 | PC.NURSE ---
ILLEGAL SUBSTANCE Illegal substances located in coordinator safe were disposed of as per pharmacist instructions. Witnessed by Leila LINARES.
== END 2023-12-04 13:30 | disposition home or self-care (01) | DRG 133 ==
LOC: ED 16:08 → AC 16:36 → ICU 17:28
PROVIDERS: Internal Medicine; Admitting Provider Hospitalist; Emergency Provider Emergency Medicine; Referring Provider Emergency Medicine; Visit Provider Hospitalist
DX: J96.21 Acute and chronic respiratory failure with hypoxia (principal); Z68.45 Body mass index [BMI] 70 or greater, adult; J81.0 Acute pulmonary edema; E87.29 Other acidosis; B34.8 Other viral infections of unspecified site; J45.901 Unspecified asthma with (acute) exacerbation; J96.22 Acute and chronic respiratory failure with hypercapnia; I27.82 Chronic pulmonary embolism; F11.20 Opioid dependence, uncomplicated; I50.9 Heart failure, unspecified; E66.2 Morbid (severe) obesity with alveolar hypoventilation; L89.329 Pressure ulcer of left buttock, unspecified stage; L89.892 Pressure ulcer of other site, stage 2; L89.319 Pressure ulcer of right buttock, unspecified stage; Z79.01 Long term (current) use of anticoagulants; Z99.81 Dependence on supplemental oxygen; Z87.891 Personal history of nicotine dependence
CPT/HCPCS: 36415; 36600; 71045; 80048; 80053; 81003; 82805; 83605; 83880; 84484; 85025; 85610; 87633; 87797; 93005; 93010; 94640; 94660; 94762; 96365; 97161; 99285; 99291; J1642; J1650; J1940; J7613

== ENCOUNTER 2024-12-18 13:21 | Emergency (ER) | payer OTHER, SELFPAY ==
[2023-12-01 16:39] VITALS: BMI 81.3
[2023-12-02 04:00] VITALS: PULSE 65; RESP 11; O2SAT 98
[2024-12-18] VITALS (9 sets, daily range): BP systolic 117–146; BP diastolic 56–81; PULSE 70–89; RESP 11–20; TEMP 36.5; O2SAT 90–95; BMI 80.1
--- NOTE | 2024-12-18 13:47 | DI.RAD.S_ITS ---
PROCEDURE: XR CHEST 1V INDICATIONS: Shortness of breath TECHNIQUE: One view of the chest was acquired. COMPARISON: [facility], CR, XR CHEST 2 VIEWS, 03/04/2024, 14:40. [facility], CR, XR CHEST 1 VIEW, 03/18/2024, 12:04. [facility], CR, XR CHEST 1V, 12/01/2023, 12:42. FINDINGS: Surgical changes and devices: None. Lungs and pleura: Mildly low lung volumes. No focal consolidation. No pleural effusions or pneumothorax. Mediastinum: Mediastinal contours appear normal. Heart size is normal. Bones and chest wall: No suspicious bony lesions. Overlying soft tissues appear unremarkable. IMPRESSION: No acute cardiopulmonary abnormality is seen. Approved by: Mateusz York M.D. on 12/18/2024 at 13:42
--- NOTE | 2024-12-18 14:21 | EKG_ITS ---
[facility] [address] [place] [address] Test Date: 2024-12-18 Pat Name: Rodrick Perez Department: [facility] Room: Gender: Male Bond Analyst: MAGGI : 1985 Requested By: Order Number: [id number] Reading MD: Elvis Viera Measurements Intervals [place] Rate: 78 P: 38 AK: 150 QRS: 13 QRSD: 110 T: 28 QT: 394 QTc: 449 Interpretive Statements Normal sinus rhythm Incomplete right bundle branch block Electronically Signed On 12-20-2024 7:51:53 PDT by Elvis Viera
[2024-12-18 14:28] LABS: Add Manual Diff / Slide Review NO; Basophils Absolute Auto 100 /uL (0-100); Basophils Percent Auto 0.9 % (0-2); Eosinophils Absolute Auto 0 /uL (0-450); Eosinophils Percent Auto 0.5 % (2-4); Hematocrit 41.2 % (41-53); Hemoglobin 13.2 g/dL (13.5-17.5); Lymphocytes Absolute Auto 600 /uL (1100-4500); Lymphocytes Percent Auto 8.2 % (25-40); Mean Corpuscular HGB Conc 31.9 % (30-36); Mean Corpuscular Hemoglobin 25.7 PG (26-34); Mean Corpuscular Volume 80.6 fL (80-100); Monocytes Absolute Auto 500 /uL (0-900); Monocytes Percent Auto 6.6 % (3-14); Neutrophils Absolute Auto 6500 /uL (1500-7000); Neutrophils Percent Auto 83.8 % (50-75); Platelet Count 256 X10^3/uL (150-400); Red Blood Cell Count 5.11 X10^6/uL (4.5-5.9); Red Cell Distribution Width 17.4 % (11.6-14.8); White Blood Cell Count 7.7 X10^3/uL (4.5-11.0)
[2024-12-18 14:37] LABS: Lactate (Lactic Acid) 2.8 mmol/L (0.7-2.1)
[2024-12-18 14:39] LABS: Alanine Aminotransferase 17 IU/L (<50); Albumin 3.9 g/dL (3.5-5.0); Albumin Globulin Ratio 1.2 (1.0-2.8); Alkaline Phosphatase 82 U/L (38-126); Aspartate Aminotransferase 20 IU/L (17-59); BUN Creatinine Ratio 18.8 (6-22); Bilirubin Total 0.5 mg/dL (0.2-1.3); Blood Urea Nitrogen 13 mg/dL (9-20); Calcium 8.6 mg/dL (8.4-10.2); Carbon Dioxide 31 mmol/L (22-32); Chloride 99 mmol/L (98-107); Estimated Glomerular Filt Rate > 60 mL/min (>60); Globulin 3.3 g/dL (1.7-4.1); Glucose 123 mg/dL (70-99); HEMOLYSIS < 15 (0-50); Potassium 3.8 mmol/L (3.4-5.1); Sodium 138 mmol/L (137-145); Total Protein 7.2 g/dL (6.3-8.2)
[2024-12-18 14:50] LABS: NT-proBNP (BNP-Adult 18+) 242 pg/mL (<125); Troponin I < 0.012 ng/mL (0.01-0.034)
[2024-12-18 14:56] LABS: INR 1.2 (0.9-1.3); Prothrombin Time 13.8 SECONDS (9.4-12.5)
--- NOTE | 2024-12-18 15:35 | ED_ITS ---
HPI - General Adult General Chief complaint: Shortness of Breath/Dyspnea Stated complaint: SOB, R Leg Pain Time Seen by Provider: 12/18/24 15:31 Source: patient Mode of arrival: Wheelchair History of Present Illness HPI narrative: 39-year-old male with history of morbid obesity, prior pulmonary embolus, congestive heart failure, ran out of his warfarin and his torsemide last week, feels more short of breath. Has some left posterior thigh shallow ulcer that has been deeper in the past, some swelling of both legs, left leg slightly increased compared to the right leg. No pleuritic chest pain. No fevers or chills. Related Data Home Medications Medication Instructions Recorded Confirmed docusate sodium 100 mg capsule 100 mg PO DAILY 12/01/23 12/02/23 furosemide 40 mg tablet 40 mg PO DAILY 12/01/23 12/01/23 polyethylene glycol 3350 17 17 g PO DAILY PRN Constipation 12/01/23 12/01/23 gram/dose oral powder potassium chloride 20 mEq 20 meq PO DAILY 12/01/23 12/01/23 tablet,extended release(part/cryst) warfarin 5 mg tablet 5 mg PO DAILY 12/01/23 12/01/23 methadone 10 mg tablet 110 mg PO DAILY 12/02/23 12/02/23 Previous Rx's Medication Instructions Recorded albuterol sulfate 90 mcg/actuation 2 puff inhalation Q6H PRN 12/04/23 aerosol inhaler shortness of breath or wheezing #8.5 grams metformin 500 mg tablet,extended 500 mg PO BID 90 days #180 tabs 12/04/23 release 24 hr albuterol sulfate 90 mcg/actuation 2 puff inhalation Q6H PRN 12/18/24 aerosol inhaler shortness of breath or wheezing #8.5 grams enoxaparin 100 mg/mL subcutaneous 100 mg SUBCUT DAILY #10 mL 12/18/24 syringe (Lovenox) enoxaparin 100 mg/mL subcutaneous 100 mg SUBCUT Q12H #10 mL 12/18/24 syringe (Lovenox) hydrocodone 5 mg-acetaminophen 325 1 tab PO Q6H PRN pain #14 tabs 12/18/24 mg tablet torsemide 20 mg tablet 60 mg (3 x 20 mg) PO DAILY #90 tabs 12/18/24 torsemide 20 mg tablet 60 mg (3 x 20 mg) PO DAILY #90 tabs 12/18/24 warfarin 5 mg tablet 5 mg PO DAILY #30 tabs 12/18/24 Allergies Allergy/AdvReac Type Severity Reaction Status Date / Time No Known Drug Allergies Allergy Verified 12/01/23 12:27 Patient History Medical History Decubitus ulcers Chronic respiratory failure with hypoxia and hypercapnia Pulmonary embolism Congestive heart failure Morbid obesity Social History household members: family and friend(s) Smoking Status: Never smoker alcohol intake: never Smoking Status: Never smoker Exam Narrative Exam Narrative: GENERAL: Well-developed patient, in mild distress. Morbid obesity. HEAD: Atraumatic. Normocephalic. EYES: Pupils equal round and reactive. Extraocular motions intact. No scleral icterus. No injection or drainage. ENT: Nose without bleeding, purulent drainage. Throat without erythema, tonsillar hypertrophy or exudate. Airway patent. NECK: Trachea midline. Non tender CARDIOVASCULAR: Regular rate and rhythm without murmurs, gallops, or rubs. RESPIRATORY: Clear to auscultation. Breath sounds equal bilaterally. No wheezes, rales, or rhonchi. GASTROINTESTINAL: Abdomen soft, non-tender, nondistended. EXTREMITIES: Yhap-nthlzdk-[id number]-right lower extremity with venous stasis changes, shallow crescent like 7 cm grade 2 ulcer posterior left proximal thigh, without surrounding erythema. BACK: Nontender without deformity or crepitance. No flank tenderness. NEURO: AOx3. Motor functions grossly nonfocal SKIN: No rash or erythema of visible areas Initial Vital Signs Initial Vital Signs: Vital Signs Temperature 97.7 F 12/18/24 13:36 Pulse Rate 88 12/18/24 13:36 Respiratory Rate 20 12/18/24 13:36 Blood Pressure 139/76 12/18/24 13:36 Pulse Oximetry 90 L 12/18/24 13:36 Oxygen Delivery Method Room Air 12/18/24 13:36 Course Orders Ordered: ED Orders 12/18/24 13:46 Consult to MARBLEIZING MACHINE TENDER - [employer] Stat 12/18/24 13:47 XR chest 1V Stat EKG-12 Lead Stat Measure peak expiratory flow STAT RT Consult Eval and Treat STAT 12/18/24 14:15 Complete Blood Count AUTO DIFF Stat Comprehensive Metabolic Panel Stat Lactate (Lactic Acid) Stat NT-proBNP (BNP-Adult 18+) Stat Prothrombin Time INR Stat Troponin I Stat 12/18/24 15:43 US periph venous low extrem lt Stat 12/18/24 17:52 Home O2 [Evaluate for home oxygen] NOW Discontinued Medications Enoxaparin Sodium (Enoxaparin 100 Mg/Ml Syringe) 100 mg SUBCUT BID MARY Enoxaparin Sodium (Enoxaparin 100 Mg/Ml Syringe) 100 mg SUBCUT NOW ONE Stop: 12/18/24 18:46 Last Admin: 12/18/24 18:54 Dose: 100 mg Documented By: Furosemide (Furosemide 40 Mg/4 Ml Vial) 40 mg IV NOW ONE Stop: 12/18/24 17:19 Last Admin: 12/18/24 17:59 Dose: 40 mg Documented By: Warfarin Sodium (Warfarin 5 Mg Tablet) 10 mg PO NOW ONE Stop: 12/18/24 18:30 Last Admin: 12/18/24 18:54 Dose: 10 mg Documented By: Vital Signs Vital signs: Vital Signs - 8 hr 12/18/24 13:36 12/18/24 13:59 12/18/24 13:59 Temperature 97.7 F Pulse Rate 88 89 Respiratory Rate 20 16 Blood Pressure 139/76 137/81 Pulse Oximetry 90 L 94 Oxygen Delivery Method Room Air Oxygen Flow Rate 12/18/24 14:00 12/18/24 14:00 12/18/24 14:30 Temperature Pulse Rate 86 82 Respiratory Rate 11 L 18 Blood Pressure 142/78 H Pulse Oximetry 93 95 Oxygen Delivery Method Nasal Cannula Oxygen Flow Rate 2 12/18/24 14:30 12/18/24 15:00 12/18/24 15:00 Temperature Pulse Rate 77 Respiratory Rate 15 Blood Pressure 146/63 H 134/63 Pulse Oximetry 93 Oxygen Delivery Method Oxygen Flow Rate 12/18/24 15:30 12/18/24 15:30 12/18/24 16:00 Temperature Pulse Rate 70 70 Respiratory Rate 14 14 Blood Pressure 119/58 L Pulse Oximetry 93 95 Oxygen Delivery Method Oxygen Flow Rate 12/18/24 16:00 12/18/24 16:30 12/18/24 16:30 Temperature Pulse Rate 70 Respiratory Rate 14 Blood Pressure 119/63 117/57 L Pulse Oximetry 95 Oxygen Delivery Method Oxygen Flow Rate 12/18/24 17:00 12/18/24 17:00 Temperature Pulse Rate 72 Respiratory Rate 17 Blood Pressure 122/56 L Pulse Oximetry 95 Oxygen Delivery Method Oxygen Flow Rate Medical Decision Making Lab Data Lab results reviewed: Yes I reviewed the patient's lab results. Lab results narrative: White blood cell count 7700, hemoglobin 13.2, platelets 256,000 adequate. Glucose 123. BUN 13 with creatinine 0.69 normal renal function. Electrolytes and serum carbon dioxide normal. Liver functions normal. Troponin negative/unmeasurable. BNP not elevated. 12/18/24 14:15 12/18/24 14:15 Labs: Lab Results 12/18/24 12/18/24 Range/Units 14:15 16:18 WBC 7.7 (4.5-11.0) X10^3/uL RBC 5.11 (4.5-5.9) X10^6/uL Hgb 13.2 L (13.5-17.5) g/dL Hct 41.2 (41-53) % MCV 80.6 (80-100) fL MCH 25.7 L (26-34) PG MCHC 31.9 (30-36) % RDW 17.4 H (11.6-14.8) % Plt Count 256 (150-400) X10^3/uL Neut % (Auto) 83.8 H (50-75) % Lymph % (Auto) 8.2 L (25-40) % [place] % (Auto) 6.6 (3-14) % Eos % (Auto) 0.5 L (2-4) % Baso % (Auto) 0.9 (0-2) % Neut # (Auto) 6500 (9692-1188) /uL Lymph # (Auto) 600 L (5332-5793) /uL [place] # (Auto) 500 (0-900) /uL Eos # (Auto) 0 (0-450) /uL Baso # (Auto) 100 (0-100) /uL PT 13.8 H (9.4-12.5) SECONDS INR 1.2 (0.9-1.3) Sodium 138 (137-145) mmol/L Potassium 3.8 (3.4-5.1) mmol/L Chloride 99 (98-107) mmol/L Carbon Dioxide 31 (22-32) mmol/L BUN 13 (9-20) mg/dL Creatinine 0.69 (0.66-1.25) mg/dL Estimated GFR > 60 (>60) mL/min BUN/Creatinine Ratio 18.8 (6-22) Glucose 123 H (70-99) mg/dL Lactate 2.8 H 0.8 (0.7-2.1) mmol/L Calcium 8.6 (8.4-10.2) mg/dL Total Bilirubin 0.5 (0.2-1.3) mg/dL AST 20 (17-59) IU/L ALT 17 (<50) IU/L Alkaline Phosphatase 82 (38-126) U/L Troponin I < 0.012 (0.01-0.034) ng/mL NT-Pro-B Natriuret Pep 242 H (<125) pg/mL Total Protein 7.2 (6.3-8.2) g/dL Albumin 3.9 (3.5-5.0) g/dL Globulin 3.3 (1.7-4.1) g/dL Albumin/Globulin Ratio 1.2 (1.0-2.8) Imaging Data Chest x-ray: Radiologist's Impression: [address] [address] XRay Report Signed Patient: Rodrick Perez MR#: [id number] : 1985 Acct:[id number] Age/Sex: 39 / M Date of Service: 12/18/24 Loc: ED Accession Number: [id number] Procedure: XR chest 1V Ordering Provider: Antonio Javier MD PROCEDURE: XR CHEST 1V INDICATIONS: Shortness of breath TECHNIQUE: One view of the chest was acquired. COMPARISON: [facility], CR, XR CHEST 2 VIEWS, 03/04/2024, 14:40. [facility], CR, XR CHEST 1 VIEW, 03/18/2024, 12:04. [facility], , XR CHEST 1V, 12/01/2023, 12:42. FINDINGS: Surgical changes and devices: None. Lungs and pleura: Mildly low lung volumes. No focal consolidation. No pleural effusions or pneumothorax. Mediastinum: Mediastinal contours appear normal. Heart size is normal. Bones and chest wall: No suspicious bony lesions. Overlying soft tissues appear unremarkable. IMPRESSION: No acute cardiopulmonary abnormality is seen. Approved by: Mateusz York M.D. on 12/18/2024 at 13:42 ECG Data Attestation: I personally reviewed and interpreted this ECG as follows: Interpretation: Normal sinus rhythm with a rate of 78, no obvious ST segment elevation or depression changes. Incomplete right bundle branch block noted. MT 150, QRS 110, QTC 449. MDM Narrative Medical decision making narrative: 39-year-old male with morbid obesity (weight 260kg, BMI 80), history of prior pulmonary embolus for which he had been taking warfarin, history of congestive heart failure for which she had been taking furosemide, ran out of medications last week, increasing shortness of breath. Some left leg swelling compared to the right. Screening labs, EKG, chest x-ray pending. Chest x-ray no acute changes, see radiology report. EKG shows normal sinus rhythm, no obvious ischemic changes. Initial troponin negative/unmeasurable. BNP not elevated. Renal function adequate, consider CT angio study, but very large gentleman with high BMI, unclear if he would fit through our scanner. We will query microwave radio technician. We will also obtain left lower extremity venous Doppler. Patient is too large for CT scanner. Ultrasound negative for DVT per sono tech, await Radiology report. Patient has indication for continued anticoagulation, had run out of medications, no respiratory distress, seems hemodynamically stable, too large/heavy for CT angiography here, transfer to [facility] [place] for emergent imaging does not seem indicated, seems reasonable to restart patient empirically on warfarin. Will query hospitalist. Patient off oxygen 94% room air. Discussed case with hospitalist Dr [place]. Agrees with outpatient restart warfarin with oral loading dose, bridging SQ Lovenox until therapeutic INR. Given SQ Lovenox 100mg dose, given oral warfarin 10mg dose. Patient given refills for warfarin (to resume his regimen 7.5mg daily alt with 5mg daily), torsemide, albuterol inhaler, also Rx for Lovenox 100mg SQ bid 5d supply with one refill. Advised FU with PCP next week for recheck INR Discharge Plan Departure Patient Disposition: Home Clinical Impression: Chronic anticoagulation, Dyspnea, Edema of both lower extremities, History of congestive heart failure, History of pulmonary embolism, Morbid obesity Prescriptions: New torsemide 20 mg tablet 60 mg PO DAILY Qty: 90 0RF enoxaparin [Lovenox] 100 mg/mL syringe 100 mg SUBCUT Q12H Qty: 10 1RF hydrocodone-acetaminophen 5-325 mg tablet 1 tab PO Q6H PRN (Reason: pain) Qty: 14 0RF albuterol sulfate 90 mcg/actuation HFA aerosol inhaler 2 puff inhalation Q6H PRN (Reason: shortness of breath or wheezing) Qty: 8.5 0RF warfarin 5 mg tablet 5 mg PO DAILY Qty: 30 0RF Rx Instructions: 2 tabs tomorrow, then alternating 1.5 tablet daily with one tablet daily, until recheck clinic next week torsemide 20 mg tablet 60 mg PO DAILY Qty: 90 0RF enoxaparin [Lovenox] 100 mg/mL syringe 100 mg SUBCUT DAILY Qty: 10 1RF No Action docusate sodium 100 mg capsule 100 mg PO DAILY Patient Comments: pt has not had med avail to take furosemide 40 mg tablet 40 mg PO DAILY potassium chloride 20 mEq tablet,ER particles/crystals 20 meq PO DAILY warfarin 5 mg tablet 5 mg PO DAILY Rx Instructions: alternates 5mg with 7.5 mg polyethylene glycol 3350 17 gram/dose powder 17 g PO DAILY PRN (Reason: Constipation) methadone 10 mg Tablet 110 mg PO DAILY albuterol sulfate 90 mcg/actuation HFA aerosol inhaler 2 puff inhalation Q6H PRN (Reason: shortness of breath or wheezing) Qty: 8.5 0RF metformin 500 mg tablet extended release 24 hr 500 mg PO BID 90 Days Qty: 180 0RF Referrals: Miscellaneous,Doctor, MD [Primary Care Provider] - Stand Alone Forms: Patient Portal/API/Survey
--- NOTE | 2024-12-18 15:43 | DI.US.S_ITS ---
PROCEDURE: US PERIPH VENOUS LOW EXTREM LT INDICATIONS: LLE pain/swelling, off warfarin x7d TECHNIQUE: Real-time imaging, as well as color and pulse Doppler interrogation, were performed of the lower extremity deep veins from the inguinal ligament to the popliteal fossa, with documentation of the visualized calf veins. COMPARISON: [facility], US, US VENOUS LOWER EXTREMITY DOPPLER BILATERAL, 02/24/2024, 5:31. FINDINGS: The common femoral, femoral, popliteal, and the visualized calf veins are normally compressible, and free of intraluminal thrombus. Color and pulse Doppler demonstrate normal phasic intraluminal flow. There is normal augmentation response to distal compression maneuver. IMPRESSION: No findings of lower extremity deep venous thrombosis. Dictated by: Mateusz York M.D. on 12/18/2024 at 16:54 Approved by: Mateusz York M.D. on 12/18/2024 at 16:55
[2024-12-18 15:51] LABS: Reflexed Lactate in 2 Hours Y
[2024-12-18 16:36] LABS: Lactate 2HR (Lactic Acid Rflx) 0.8 mmol/L (0.7-2.1)
[2024-12-18] MEDS: FUROSEMIDE 40 MG/4 ML VIAL IV (17:59)
--- NOTE | 2024-12-18 18:53 | CM.SWNOTE ---
ED TRUCK DRIVING Note Patient is 39 y/o male who presents to the ED via POV with friend due to concern for SOB, nausea, sore throat and congestion. It is reported that patient has not been taking rx due to needing refill from PCP. Patient also presents with wounds on thighs. Patient's PCP is Libertad Horton at [facility], [facility]. Patient has hx of morbid obesity, hx of pulmonary embolism, hx of CHF, edema of both lower extremities, dyspnea, and chronic anticoagulation. TRUCK DRIVING enters room to meet with patient. Patient presents as A/Ox4, patient states that he has been homeless for a while, patient states he was living in a car with his mother, and has been staying on and off on a friend's couch. Patient states that his friend can no longer house patient due to concern for her being evicted. Patient states he uses two canes to ambulate and cannot walk long distances. Patient endorses that he receives SSI and food stamps. Patient states that he applied for 211 and is on the waiting list for housing. Patient denies any other local friends or family. Patient states if he discharges he will go to where his mom is in [facility] and stay in her car, patient states that they have money saved to buy a new car. Patient asks about O2 upon d/c. TRUCK DRIVING requested RN to order RT and it is reported that patient does not need Home O2 at this time. TRUCK DRIVING provides patient with lists of housing, usp and basic needs resources. ED provider states that patient is medically clear for d/c, ED provider to prescribe all of patient's medications to pharmacy in [facility]. Patient requests transportation upon d/c, TRUCK DRIVING calls [facility] after hours medicaid transport number and it is reported that there is no coal tram driver available. Patient to transport to [facility] via taxi voucher. Patient endorses plans to stay with mother in [place]. Plan: patient to d/c to community upon medical clearance, patient to f/u with PCP, patient to pick pulling machine operator rx upon d/c. Patient to f/u with resources provided. BJ WallSW
[2024-12-18] MEDS: ENOXAPARIN 100 MG/ML SYRINGE SUBCUT (18:54)
[2024-12-18] MEDS: WARFARIN 5 MG TABLET 10 MG PO (18:54)
== END 2024-12-18 19:28 | disposition home or self-care (01) ==
PROVIDERS: Emergency Provider Emergency Medicine
DX: R06.00 Dyspnea, unspecified (principal); R60.0 Localized edema; E66.01 Morbid (severe) obesity due to excess calories; Z79.01 Long term (current) use of anticoagulants; Z86.711 Personal history of pulmonary embolism; Z68.45 Body mass index [BMI] 70 or greater, adult; Z86.79 Personal history of other diseases of the circulatory system
CPT/HCPCS: 36415; 71045; 80053; 83605; 83880; 84484; 85025; 85610; 93005; 93971; 96372; 96374; 99285; J1650; J1938